=== PATIENT | male | born 1955 | race Caucasian/White ===

== ENCOUNTER 2023-12-22 09:14 | Inpatient (IN) | payer OTHER, SELFPAY ==
[2023-12-22 11:15] VITALS: BMI 28.2
--- NOTE | 2023-12-22 11:43 | W.CARD.TIKOS ---
Initiate Tikosyn
-
I verify that the patient has not taken any verapamil (Isoptin/Calan), ketoconazole (Nizoral), cimetidine (Tagamet), trimethoprim (Trimpex), trimethoprim/sulfamethoxazole (Bactrim), megesterol (Megace), prochlorperazine (Compazine),
hydrochlorothiazide (HCTZ), dolutegravir (Tivicay) or any Class I or Class III anti-arrhythmic within the last three days. Patient confirms verapamil stopped on Dec 18.
AND
I verify that the patient has not taken amiodarone within the last THREE months, or that the patient's amiodarone plasma concentration is <0.3 mcg/mL.
Does patient have a Ventricular Conduction Abnormality: No
I have assessed the baseline QTc interval (using QT for heart rate less than 60 bpm) and deemed the patient is appropriate for Dofetilide therapy. I understand that Tikosyn is contraindicated if the QTc is >440msec (500msec in patients with
ventricular conduction abnormalities).
Baseline QTc (in msec): 420
QTc interval is greater than 440msec without conduction abnormality OR greater than 500msec with a conduction abnormality, but acceptable to proceed per Cardiology attending.
Ordering Physician: Anish Sepulveda
[2023-12-22 13:02] VITALS: BP 122/60
[2023-12-22 13:15] VITALS: BMI 28.8
--- NOTE | 2023-12-22 13:40 | PTCARENOTE ---
Rec'd pt s/p PERICO/CV AAOx3 w/no CP or SOB. Pt's VS stable. Pt SR w/some PVC's on telemetry monitoring. Pt's spouse, Meet at bedside. This RN discussed plan of care w/pt & he verbalizes his understanding. Pt w/call robert within reach & no addtl
needs at this time. Plan of care ongoing.
[2023-12-22 14:28] LABS: Hematocrit 42.6 % (39.0-52.0); Hemoglobin 14.2 g/dL (13.0-18.0); Mean Corp Hgb Conc. 33.3 g/dL (33.0-37.0); Mean Corpuscular Hgb 28.7 pg (27.0-31.0); Mean Corpuscular Volume 86.1 fL (80.0-94.0); Platelet Count 198 10^3/uL (130-400); Red Blood Cell Count 4.95 10^6/uL (4.70-6.10); Red Cell Dist. Width 13.8 % (11.5-14.5); White Blood Cell Count 6.8 10^3/uL (4.8-10.8)
[2023-12-22 14:40] LABS: Blood Urea Nitrogen 22 mg/dl (9-20); Carbon Dioxide 24 mmol/L (22-30); Chloride 108 mmol/L (98-107); Estimated Creatinine Clearance 101 ml/min; Glucose 101 mg/dl (70-99); Potassium 3.9 mmol/L (3.5-5.1); Sodium 137 mmol/L (135-145); eGFR > 60.00
[2023-12-22 14:55] VITALS: BP 121/78
[2023-12-22 16:21] VITALS: BMI 28.8
[2023-12-22 18:52] VITALS: BP 107/80
[2023-12-22] MEDS: ELIQUIS 5 MG PO (20:17)
[2023-12-22] MEDS: TIKOSYN 500 MCG PO (20:17)
--- NOTE | 2023-12-22 21:16 | PTCARENOTE ---
Received pt at handoff. AOx3. Assessment noted as documented. Tele- SR. Pt given first dose of Tikosyn at 20:00. Ekg due for 22:00. Pt offers no complaints at this time. Pt ambulatory in room; steady gait. Currently resting in bed; call yesica w/in
reach.
[2023-12-22 22:10] VITALS: BP 109/68
--- NOTE | 2023-12-23 04:25 | DOWNTIME ---
There was a [employer] Client Audit Clerk Downtime on 12/23/2023 from 0111 to 12/23/2023 at 0405. Downtime documentation of patient's care, including medication administrations, has been reconciled in the electronic record per guidelines. Refer to the
patient's paper chart under the miscellaneous tab to see printed paper medication records and downtime forms.
[2023-12-23 04:35] VITALS: BP 120/76
[2023-12-23 04:47] VITALS: BMI 28.4
[2023-12-23 04:58] LABS: Hematocrit 40.6 % (39.0-52.0); Hemoglobin 13.7 g/dL (13.0-18.0); Mean Corp Hgb Conc. 33.7 g/dL (33.0-37.0); Mean Corpuscular Hgb 29.3 pg (27.0-31.0); Mean Corpuscular Volume 86.8 fL (80.0-94.0); Mean Platelet Volume 11.1 fL (7.4-10.4); Platelet Count 180 10^3/uL (130-400); Red Blood Cell Count 4.68 10^6/uL (4.70-6.10); Red Cell Dist. Width 13.6 % (11.5-14.5); White Blood Cell Count 7.9 10^3/uL (4.8-10.8)
[2023-12-23 05:24] LABS: Blood Urea Nitrogen 19 mg/dl (9-20); Calcium 9.2 mg/dl (8.4-10.2); Carbon Dioxide 24 mmol/L (22-30); Chloride 108 mmol/L (98-107); Estimated Creatinine Clearance 89 ml/min; Glucose 95 mg/dl (70-99); HDL Cholesterol 41 mg/dl; LDL Cholesterol, Calculated 81 mg/dl; Potassium 4.2 mmol/L (3.5-5.1); Sodium 138 mmol/L (135-145); Total Cholesterol 140 mg/dl (50-199); Triglyceride 91 mg/dl (10-149); Very Low Density Lipoprotein 18 mg/dl (0-30); eGFR > 60.00
[2023-12-23 07:38] VITALS: BP 126/73
[2023-12-23] MEDS: TIKOSYN 500 MCG PO ×2 (09:11→20:09)
[2023-12-23] MEDS: PROSCAR 5 MG PO (09:12)
[2023-12-23] MEDS: FLOMAX 0.400000000000000022 MG PO (09:12)
[2023-12-23] MEDS: LASIX 40 MG PO (09:12)
[2023-12-23] MEDS: DIOVAN 80 MG PO (09:12)
[2023-12-23] MEDS: ELIQUIS 5 MG PO ×2 (09:12→20:09)
[2023-12-23] MEDS: CLARITIN 10 MG PO (09:12)
--- NOTE | 2023-12-23 09:23 | CM ---
spoke to pt in room, he is prev indep, lives with her husb in a 1 story home with 2 steps to enter. he denies any dc planning needs or dme's. plan is for dc to home when medically stable.
--- NOTE | 2023-12-23 09:27 | W.PN.CD ---
Today's Communication / Plan
-
Add eplerenone, as had breast tenderness since Aldactone started
Continue Dofetilide. Home after 6th dose
Watch QT/Tele carefully
I spent 53 min caring for pt: Review extensive records, discussed with Dr. Sepulveda, prepared this document
Impression / Plan
-
Persistent AFib
- No complications for PERICO/DCCV on 12/22/[address] Sepulveda
- Doing well with dofetilide initiation
- Did well with ablation for about 17 years. He may pursue a second ablation
- [id number] is 3 (HF, HTN, age1)
- Home several hours after 6th dose of dofetilide
Chronic HFpEF
- Compensated
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
- PERICO 12/22/[address] Sepulveda. Technical issue with MV section transferring to [employer]
- Posterior P2 and P3 prolapse with moderate MR
Chronic anticoagulation
HTN
BPH
PVCs
PACs
Hematospermia
- He noted recently
- He knows to notify his urologist for followup but cannot stop/hold Eliquis for 30 days from DCCV
Breast tenderness since on Aldactone
- Move to eplerenone
Subjective: Feels well overall
Physical Exam
Vital Signs/Labs
Vital Signs
Temp Pulse Resp BP Pulse Ox
98.1 F 64 18 126/73 95
12/23/23 07:35 12/23/23 09:00 12/23/23 07:35 12/23/23 07:38 12/23/23 07:35
12/22/23 12/23/23 12/24/23
06:59 06:59 06:59
Actual Weight 89.9 kg
12/23/23 04:45
12/23/23 04:45
Triglycerides 91 mg/dl (10-149) 12/23/23 04:45
LDL Cholesterol, Calc 81 mg/dl 12/23/23 04:45
VLDL Cholesterol, Calc 18 mg/dl (0-30) 12/23/23 04:45
HDL Cholesterol 41 mg/dl 12/23/23 04:45
Physical Exam
Constitutional: No acute distress
EENT: Anicteric
Cardiovascular: Rhythm & rate is regular, Pedal edema is absent, JVD pressure is normal, Systolic murmur present and S1S2 is normal
Respiratory: Respiratory effort normal and Lungs clear to auscul.
GI: Soft and Distention absent
Neuro/Psych: AO x 3
Data Reviewed
-
Date of Service: December 23, 2023
EKG: Tracing Personally Visualized and interpreted (NSR, first degree AV block, QT ok)
Labs: Other (Tele: Sinus, PVCs but not on T wave. No VT)
[2023-12-23] MEDS: INSPRA 25 MG PO (11:12)
[2023-12-23 12:07] VITALS: BP 128/74
[2023-12-23 15:45] VITALS: BP 137/73
--- NOTE | 2023-12-23 19:45 | PTCARENOTE ---
Pt up independently. Second dose of tikosyn given. Telemetry shows sinus rhythm with first degree AV block, rare bigeminy noted.
[2023-12-23 20:07] VITALS: BP 114/74
[2023-12-23 22:21] VITALS: BP 114/80
[2023-12-24] VITALS (7 sets, daily range): BP systolic 103–128; BP diastolic 67–80; BMI 28.1
[2023-12-24] MEDS: TIKOSYN 500 MCG PO (08:24)
[2023-12-24] MEDS: FLOMAX 0.400000000000000022 MG PO (08:24)
[2023-12-24] MEDS: DIOVAN 80 MG PO (08:24)
[2023-12-24] MEDS: LASIX 40 MG PO (08:25)
[2023-12-24] MEDS: CLARITIN 10 MG PO (08:25)
[2023-12-24] MEDS: ELIQUIS 5 MG PO ×2 (08:25→20:05)
[2023-12-24] MEDS: PROSCAR 5 MG PO (08:25)
[2023-12-24] MEDS: INSPRA 25 MG PO (08:25)
--- NOTE | 2023-12-24 11:28 | W.PN.UPDATE ---
Update Note
Progress Note Update
patient was noted to have NSVT - 7 beat run. He has frequent PVCs. PVCs are acceptable for Tikosyn but with the onset of NSVT, it is concerning to continue Tikosyn. We discussed the options decided to stop the Tikosyn at this time. He will resume
his Verapamil in 3 days
He is in sinus rhythm. If he goes out of rhythm again, then can consider starting Amiodarone. He was on Amiodarone in the past and had failed due to ineffective. He can go back on it and if interested can see EP clinic for redo ablation. His first
AF ablation was in 2006 at [facility].
--- NOTE | 2023-12-24 11:32 | W.PN.UPDATE ---
Update Note
Progress Note Update
Patient is in normal sinus rhythm. Telemetry was reviewed. Patient has weak PVCs. However, he has nonsustained VT with 7 beats of ventricular tachycardia noted with the start of Tikosyn. With the new onset of nonsustained VT, Tikosyn may not be
an appropriate drug for him.
After discussion with the patient, we discontinued his Tikosyn. He will resume his verapamil in 3 days.
If he goes back into atrial fibrillation, plan will be to restart amiodarone. He was on amiodarone in the past and had failed it due to being ineffective.
Plan is restart amiodarone if A-fib comes back, and he can see EP clinic for need of repeat ablation. His first A-fib ablation was in 2002 at [facility]
--- NOTE | 2023-12-24 11:49 | CM ---
CM following for DC planning needs.
Reviewed DC plan. Anticipate DC to home without needs.
Will follow.
--- NOTE | 2023-12-24 18:30 | PTCARENOTE ---
Pt up walking in halls. Telemetry shows sinus rhythm with first degree AV block, 7 beat run of NSVT noted from midnight. Tikosyn discontinued after 4th dose was given this morning.
[2023-12-24] MEDS: INDERAL 10 MG PO (21:21)
--- NOTE | 2023-12-24 21:25 | PTCARENOTE ---
Patient with symptomatic PVC's and trigeminy. Propanol 10 mg PO given and confirmed with Dr. Sepulveda.
--- NOTE | 2023-12-24 22:08 | PTCARENOTE ---
NSR with a first degree HB and his frequent PVC's, couplets and trigeminy have subsided
[2023-12-25 05:10] VITALS: BP 124/73
--- NOTE | 2023-12-25 05:45 | PTCARENOTE ---
Patient comfortable, vitals obtained, SR HR in the 70's occasional PVC's, call robert in reach
[2023-12-25 07:19] VITALS: BP 118/76
[2023-12-25] MEDS: DIOVAN 80 MG PO (08:33)
[2023-12-25] MEDS: FLOMAX 0.400000000000000022 MG PO (08:33)
[2023-12-25] MEDS: PROSCAR 5 MG PO (08:33)
[2023-12-25] MEDS: CLARITIN 10 MG PO (08:33)
[2023-12-25] MEDS: LASIX 40 MG PO (08:34)
[2023-12-25] MEDS: INSPRA 25 MG PO (08:34)
[2023-12-25] MEDS: ELIQUIS 5 MG PO (08:34)
--- NOTE | 2023-12-25 10:39 | W.PN.CD ---
Today's Communication / Plan
-
Add propranolol
Home later this afternoon if tele quiet
Will meet with Dr. Pena as outpatient to discuss repeat AFib RFA
Will follow MVP/MR over time
Impression / Plan
-
Persistent AFib
- No complications for PERICO/DCCV on 12/22/[address] Sepulveda
- Dofetilide stopped fro NSVT
- Did well with ablation for about 17 years.
- He will pursue a second ablation
- [id number] is 3 (HF, HTN, age1)
- Home later this afternoon if tele quiet
- Add low dose long acting propranolol. Will not resume Verapamil
Chronic HFpEF
- Compensated
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
- PERICO 12/22/[address] Sepulveda. Technical issue with MV section transferring to [employer]
- Posterior P2 and P3 prolapse with moderate MR
Chronic anticoagulation
HTN
BPH
PVCs
PACs
Hematospermia
- He noted recently
- He knows to notify his urologist for followup but cannot stop/hold Eliquis for 30 days from DCCV
Breast tenderness since on Aldactone
- Move to eplerenone
Subjective: Feels well overall
Physical Exam
Vital Signs/Labs
Vital Signs
Temp Pulse Resp BP Pulse Ox
97.9 F 66 16 118/76 95
12/25/23 07:18 12/25/23 08:15 12/25/23 07:18 12/25/23 07:19 12/25/23 08:37
12/24/23 12/25/23 12/26/23
06:59 06:59 06:59
Actual Weight 88.8 kg
12/23/23 04:45
12/23/23 04:45
Triglycerides 91 mg/dl (10-149) 12/23/23 04:45
LDL Cholesterol, Calc 81 mg/dl 12/23/23 04:45
VLDL Cholesterol, Calc 18 mg/dl (0-30) 12/23/23 04:45
HDL Cholesterol 41 mg/dl 12/23/23 04:45
Physical Exam
Constitutional: No acute distress
EENT: Anicteric
Cardiovascular: Rhythm & rate is regular, Pedal edema is absent, Systolic murmur present and S1S2 is normal
Respiratory: Respiratory effort normal and Lungs clear to auscul.
GI: Soft
Neuro/Psych: Alert and Oriented
Data Reviewed
-
Date of Service: December 25, 2023
[2023-12-25] MEDS: INDERAL LA 60 MG PO (11:27)
[2023-12-25 11:48] VITALS: BP 123/79
[2023-12-25 15:36] VITALS: BP 104/62
--- NOTE | 2023-12-25 15:48 | W.DS.TRANS ---
Addendum entered and electronically signed by ZACH Mcdaniels 12/25/23 15:55:
Verapamil stopped at discharge.
Original Note:
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
-
Discharge Instructions:
Sleep Apnea Risk Intermediate
Discharge Diagnosis/Procedures persistent Afib, NSVT
Diet 2 Gram Sodium,Restrict fluids to 64 oz
Activity No restrictions
Driving Restrictions As prior to admission
Bathing Restrictions None
Instructions:
Stand-Alone Forms:
Changes to Home Medications: Yes
Discharge Medications:
DC Medications w/original date entered in byyd
cholecalciferol (vitamin D3) 50 mcg (2,000 unit) tablet (Vitamin D3) 50 mcg PO DAILY Supplement 10/30/23
coenzyme Q10 300 mg capsule (Co Q-10) 300 mg PO DAILY Supplement 10/30/23
finasteride 5 mg tablet 5 mg PO DAILY Urinary Issue 10/30/23
glucosamine sulf dipot chlr,msm,chond 550 mg-C 30 mg-tramaine 1 mg capsule (Glucosamine Chondroitin) 1 cap PO DAILY Supplement 10/30/23
loratadine 10 mg tablet 10 mg PO DAILY Allergies 10/30/23
lysine 500 mg tablet 1,000 mg PO DAILY Supplement 10/30/23
multivitamin 1 tab PO DAILY Supplement 10/30/23
tamsulosin 0.4 mg capsule 0.4 mg PO DAILY Urinary Issue 10/30/23
vitamin B complex 1 tab PO DAILY Supplement 10/30/23
apixaban 5 mg tablet (Eliquis) 5 mg PO BID #60 tabs 10/31/23
furosemide 40 mg tablet (Lasix) 40 mg PO DAILY #30 tabs 10/31/23
valsartan 160 mg tablet 80 mg PO DAILY Blood Pressure #0 tabs 10/31/23
ascorbic acid (vitamin C) 500 mg tablet (Vitamin C) 500 mg PO DAILY 12/22/23
qlyxjoc-yrejsyato-vqpt tablet 1 tab PO DAILY 12/22/23
cyanocobalamin (vitamin B-12) 1,000 mcg tablet (Vitamin B-12) 1,000 mcg PO DAILY 12/22/23
diosmin 750 mg PO DAILY 12/22/23
empagliflozin 10 mg tablet (Jardiance) 10 mg PO DAILY 12/22/23
turmeric 1,500 mg PO DAILY 12/22/23
eplerenone 25 mg tablet 25 mg PO DAILY #30 tabs 12/25/23
propranolol 60 mg capsule,24 hr,extended release 60 mg PO DAILY #30 caps 12/25/23
Home Medication Changes
Propranolol changed to 60mg extended release daily.
Eplerenone is new.
Aldactone stopped.
Pending Results: No
--- NOTE | 2023-12-25 17:09 | PTCARENOTE ---
Pt seen by , long acting propranolol given. Telemetry shows sinus rhythm with first degree AV block and quadrigeminy at times which pt is aware of. Telemetry and iV device removed. Discharge instructions reviewed with pt regarding
medications, reporting cares and concerns and follow up appt's. Excellent understanding verbalized. Pt escorted out via wheelchair and discharged to home.
== END 2023-12-25 17:11 | disposition home or self-care (01) | DRG 309 ==
LOC: IVU 09:14
PROVIDERS: Internal Medicine Cardiovascular Disease; ADMITTING PHYSICIAN Internal Medicine Cardiovascular Disease; FAMILY PHYSICIAN Family Medicine
PROC: 5A2204Z Restoration of Cardiac Rhythm, Single (ICD-10-PCS; 2023-12-22)
PROC: B24BZZ4 Ultrasonography of Heart with Aorta, Transesophageal (ICD-10-PCS; 2023-12-22)
PROC: 3E0DXRZ Introduction of Antiarrhythmic into Mouth and Pharynx, External Approach (ICD-10-PCS; 2023-12-24)
DX: I48.19 Other persistent atrial fibrillation (principal); I50.32 Chronic diastolic (congestive) heart failure; I47.20 Ventricular tachycardia, unspecified; I11.0 Hypertensive heart disease with heart failure; I34.0 Nonrheumatic mitral (valve) insufficiency; I49.1 Atrial premature depolarization; N40.0 Benign prostatic hyperplasia without lower urinary tract symptoms; I49.3 Ventricular premature depolarization; R36.1 Hematospermia; I34.1 Nonrheumatic mitral (valve) prolapse; Z79.01 Long term (current) use of anticoagulants
CPT/HCPCS: 80048; 80061; 85027; 92960; 93005; 93312; 93320; 93325

== ENCOUNTER 2024-01-07 07:58 | Day surgery (SDC) | payer OTHER, SELFPAY ==
[2024-01-07] VITALS (11 sets, daily range): BP systolic 108–128; BP diastolic 64–74; BMI 30.3
[2024-01-07] MEDS: TYLENOL 1000 MG PO (10:00)
[2024-01-07 13:08] LABS: ACT-LR - POC 326 Seconds (116-155)
[2024-01-07 13:27] LABS: ACT-LR - POC 335 Seconds (116-155)
[2024-01-07 13:44] LABS: ACT-LR - POC 334 Seconds (116-155)
--- NOTE | 2024-01-07 15:10 | ITS.CL.ABL ---
[employer] Sole [employer]itter - Ablation
Ablation
Procedure Report:
AFIB ablation:
Mr. Zazueta is a very pleasant 68 yr old gentleman with symptomatic persistent AF who had his first AF ablation in 2007 at [facility] that resulted in recurrence of AF and has failed Tikosyn due to NSVT and now on Propranolol presented today to the EP lab
for atrial fibrillation ablation. He was laso noted to have PVCs and if noted significant burden will consider getting PVC ablation as well. �
Date of Procedure:
01/07/2024
Indications:
Persistent recurrent atrial fibrillation
Pre-Operative Diagnosis:
Persistent Atrial fibrillation
Post-Operative Diagnosis:
Persistent Atrial fibrillation
Procedure Performed:
Atrial fibrillation Redo ablation with wide area circumferential ablation (WACA) approach for pulmonary vein re-isolation
Roof line formation
Posterior wall isolation
Performing Physician:
Bianca Pena MD
Assistants:
EP staff
Anesthesia:
See anesthesia records
Detailed Description of the Procedure:
Written informed consent was obtained from the patient after a full explanation of the risks and benefits of the procedure including the risks of sedation and anesthesia.
The patient was brought to the electrophysiology laboratory in stable condition in fasting state. Continuous electrocardiographic and hemodynamic monitoring was initiated.
The initial rhythm was sinus rhythm.
The procedure site was meticulously prepared with surgical scrub and allowed to dry with no pooling. Sterile draping was applied to cover the procedure site. The image intensifier was draped with sterile bag and positioned over the patient. After
infusion of local anesthetic, vascular access was obtained under ultrasound guidance and sheaths were placed over guide wire as detailed below.
Sheath and Catheter Placement:
The following catheters / sheaths were placed
Sheaths:
��������� Agilis sheath in right femoral vein upgraded from 8Fr in right femoral vein
��������� 7Fr in right femoral vein
��������� 9Fr in right femoral vein
Catheters:
��������� [employer] Colunga Thermocool STSF bidirectional� - at locations of HRA, RV, LA and LV.
��������� Pentaray catheter � at locations of RA, RV, LA and LV
��������� ICE catheter -AcuNav -� at locations of RA, SVC, and RV.
��������� Decapolar Bard catheter in RA and CS
Intracardiac ECHO:
An 8-Latvian AcuNav intracardiac ECHO (ICE) probe was advanced through the 9-Latvian sheath in the left femoral vein into the right atrium under fluoroscopic and ICE ultrasound image guidance and a baseline ECHO study was performed. The left atrial
size was dilated. There was mild tricuspid regurgitation. The aortic valve was grossly normal. There was mild left ventricular systolic dysfunction. There was no pericardial effusion. The GINI has normal velocities noted on Doppler. All the four
veins were identified and has good flow identified.
During the procedure, ICE was used for monitoring of complications, guidance of trans-septal puncture, monitor the catheter position and tracking ablation lesions. No change in the pericardial space noted throughout the procedure.
Transseptal Puncture:
Heparin was initiated and infused to maintain appropriate ACT. A J-tipped guidewire was advanced through the 8-Latvian sheath in the right femoral vein into the superior vena cava under fluoroscopic and ICE guidance. The 8-Latvian sheath was exchanged
for an Agilis sheath which was advanced into the superior vena cava. A BRK transseptal needle was advanced until the tip was slightly behind the tip of the dilator inside the sheath. The apparatus was withdrawn until it was in contact with the fossa
ovalis. The position was adjusted based on fluoroscopy and ultrasound images from ICE. Under fluoroscopic, hemodynamic and ICE ultrasound guidance, left atrium was cannulated by advancing the needle. Once atrial septum was cannulated, the needle was
pulled back and a BMW guide wire was advanced through the needle into the left atrium. The guide wire was advanced into the left superior pulmonary vein. Both the sheath and the dilator was advanced into the left atrium under fluoro and ICE
guidance. The dilator with the needle was withdrawn. Blood was aspirated from the Agilis sheath and arterial blood confirmed. The sheath was flushed. Saline injection noted into the left atrium on ICE. The mapping catheter was advanced in the Agilis
sheath into the left pulmonary vein.
3D Electroanatomic Mapping:
Using the Pentaray catheter advanced through Agilis sheath into the left atrium, an electroanatomic map (EAM) of the left atrium was created using [employer] Carto mapping system. The map was used for localization of catheter position and
tacking of ablation lesions. The EAM of the left atrium showed 4 pulmonary veins with the left sided pulmonary veins electrically connected with some posterior wall electrical activity. There were significant long fractionated signals noted at the
roof of the LA.
The LA was severely dilated. �
Following the EAM, preparation were made for ablation.
Ablation:
Ablation # 1: Pulmonary vein Isolation:
Radiofrequency ablation was performed using an open irrigation, force-sensing 3.5mm radiofrequency ablation catheter (Clusterize STSF) by completing the circumferential lesions around the left pulmonary vein achieving pulmonary vein isolation. There
was fractionated signal noted in the antrum of the LIPV and additional ablations were placed to create full isolation.
The ligament of Jonah was ablated endocardially.
All the ablation lesions were guided by the [employer] SURPOINT module with the posterior lesions were limited to 45 perez for SURPOINT lesion index goal of 400 and anterior wall lesions were limited to SURPOINT index goal of 450.
Ablation # 2: Roof line Formation:
There was a clear channel of electrical activity left in the posterior wall with multiple CFAE and AF areas on the roof significant scar noted on the roof with some residual electrical activity noted. This increased the risk of atrial flutter and
decision was made to create a roof line to block a slow conduction.
A set of radiofrequency ablations were placed on the roof line connecting the left superior pulmonary vein ablation lesions to the right superior pulmonary vein lesions rings.
Posterior wall isolation with the Box lesions set Formation:
There was a significant fractionation seen in the posterior wall and LA AF foci made it clear as the posterior wall is critical in maintaining the atrial fibrillation and the decision was made to isolate the posterior wall by creating a �Box�
lesions.
A set of radiofrequency ablations were placed on the floor line connecting the left inferior pulmonary vein ablation lesions to the right inferior pulmonary vein lesions rings.
Epicardial posterior wall connection ablation:
The EAM of the LA showed epicardial connection at the center of the left atrial posterior wall. The area was mapped and was paced that was able to capture the LA through that point. The epicardial connection had no signals around it and no capture
or was noted on the roof or the floor line.
The epicardial connection was ablated with ablation lesion with a single ablation the connection dissipated. The area was connected to the roof line and to the floor line.
The posterior wall area adjacent to the RIPV antrum was noted to have GPs and ablation there caused bradycardia.
The penta-ray in the posterior wall showed entrance block with dissociated potentials and the pacing from the posterior wall showed local capture with no exit from the box lesions confirming the exit block.
The esophagus was noted to be on the left of the LA based on the locations of the esophageal temperature probe. Ablation was stopped for any temperature increase of 0.1 degree C. Max esophageal temperature was 37.6C.
Confirmation of the PVI and bidirectional block:
Following achievement of entrance block at the pulmonary veins, pacing from the pentaray in each of the four veins at 10 milliamps for 2 milliseconds showed entrance and exit block.
EP study:
Normal AV conduction noted.
The sinus node has recovered and patient remained in sinus rhythm
All PVI were rechecked at the end of the case and remained isolated with dissociated and local capture with pacing. Entrance and exit block were demonstrated in all veins.
Procedure End
ICE study was done again that showed no epicardial accumulation. No complications noted.
Following the completion of the EP study, catheters were removed. Protamine 40 mg was given at the end of the procedure and ACT was checked repeatedly. The sheaths were removed and hemostasis achieved with manual compression and Vascade after
acceptable ACT is achieved.
Left atrial Pressure:
Pre-Procedure: Mean LA pressure was 9mmHg
Post-Procedure: Mean LA pressure was 10mmHg
Post-Procedure: Mean RA pressure was 6mmHg
Estimated Blood loss:
<10 cc
Specimens Removed:
None.
Implants / Devices:
None
Urine output:
None
Packs / Drains/ Tubes:
None
Instrument / Sponge Count Correct:
Yes
Complications of the Procedure:
None
Condition of Patient at Time of Transfer:
Hemodynamically stable with no neurological or vascular compromise.
Summary:
Successful atrial fibrillation ablation with circumferential bidirectional line of block at pulmonary venin antra (Pulmonary vein isolation), Epicardial connection ablation on posterior wall, Roof line formation, posterior wall isolation
Figures from the Procedure:
Figure 1: The electroanatomic mapping (EAM) of the left atrium with bipolar voltage (purple indicates normal electrical activity with red as no myocardial muscle electric activity indicating a line of block or scar.
--- NOTE | 2024-01-07 16:22 | W.PN.UPDATE ---
Update Note
Progress Note Update
68 yo WM s/p redo PVI (same day). He feels good, no cp, sob, darío diet, voiding, amb w/o dizziness, R fem site c/d/i soft, EKG SR/SB 1deg AVB. He will continue OAC Eliquis dose at 8pm tonight. He will continue propanolol. Activity restrictions
reviewed. 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 He is for d/c home after 5pm.
Mr. Zazueta is a very pleasant 68 yr old gentleman with symptomatic persistent AF who had his first AF ablation in 2007 at [facility] that resulted in recurrence of AF and has failed Tikosyn due to NSVT and now on Propranolol presented today to the EP lab
for atrial fibrillation ablation. He was laso noted to have PVCs and if noted significant burden will consider getting PVC ablation as well. �
Date of Procedure:
01/07/2024
Procedure Performed:
Atrial fibrillation Redo ablation with wide area circumferential ablation (WACA) approach for pulmonary vein re-isolation
Roof line formation
Posterior wall isolation
[2024-01-07] MEDS: TYLENOL 650 MG PO (16:49)
== END 2024-01-07 17:07 | disposition home or self-care (01) ==
LOC: CATH 07:58
PROVIDERS: ATTENDING PHYSICIAN Internal Medicine Cardiovascular Disease; FAMILY PHYSICIAN Family Medicine; OTHER PHYSICIAN Internal Medicine Cardiovascular Disease
DX: I48.19 Other persistent atrial fibrillation (principal); Z79.01 Long term (current) use of anticoagulants; I11.0 Hypertensive heart disease with heart failure; I50.32 Chronic diastolic (congestive) heart failure; I49.3 Ventricular premature depolarization
CPT/HCPCS: C1769; C1732; C1894; C1766; C1892; C1759; 76937; 85347; 86850; 86900; 86901; 93005; 93656; 93657; C1760

== ENCOUNTER → 2024-02-11 11:39 | Outpatient (REF) | payer OTHER, SELFPAY | LOC: RCS 11:39 | PROVIDERS: ATTENDING PHYSICIAN Internal Medicine Cardiovascular Disease; FAMILY PHYSICIAN Family Medicine | DX: I48.0 Paroxysmal atrial fibrillation (principal) | CPT/HCPCS: 93005 ==

== ENCOUNTER 2024-02-17 07:10 | Day surgery (SDC) | payer OTHER, SELFPAY | END 2024-02-17 10:10 | disposition home or self-care (01) | LOC: CATH 07:10 | PROVIDERS: ATTENDING PHYSICIAN Internal Medicine; FAMILY PHYSICIAN Family Medicine; OTHER PHYSICIAN Internal Medicine Cardiovascular Disease | DX: I08.3 Combined rheumatic disorders of mitral, aortic and tricuspid valves (principal); I08.8 Other rheumatic multiple valve diseases; I48.19 Other persistent atrial fibrillation; I50.32 Chronic diastolic (congestive) heart failure; I34.1 Nonrheumatic mitral (valve) prolapse; I11.0 Hypertensive heart disease with heart failure; Z79.01 Long term (current) use of anticoagulants | CPT/HCPCS: 93312; 93320; 93325; 92960; 93005 ==

== ENCOUNTER → 2024-03-09 12:01 | Outpatient (REF) | payer OTHER, SELFPAY | LOC: DHCBC/DCA 12:01 | PROVIDERS: ATTENDING PHYSICIAN Nurse Practitioner; FAMILY PHYSICIAN Family Medicine | DX: I48.0 Paroxysmal atrial fibrillation (principal); I47.29 Other ventricular tachycardia; I49.3 Ventricular premature depolarization; R53.83 Other fatigue; R06.09 Other forms of dyspnea | CPT/HCPCS: 78452; 93017; A9500; J2785 ==

== ENCOUNTER → 2025-03-09 07:20 | Outpatient (REF) | payer OTHER, SELFPAY | LOC: HWRAD 07:20 | PROVIDERS: ATTENDING PHYSICIAN Physician Assistant; FAMILY PHYSICIAN Family Medicine | DX: R19.09 Other intra-abdominal and pelvic swelling, mass and lump (principal) | CPT/HCPCS: 76882 ==

== ENCOUNTER → 2025-04-20 14:10 | Outpatient (REF) | payer OTHER, SELFPAY | LOC: RCS 14:10 | PROVIDERS: ATTENDING PHYSICIAN Internal Medicine Cardiovascular Disease; FAMILY PHYSICIAN Family Medicine | DX: I34.1 Nonrheumatic mitral (valve) prolapse (principal); I34.0 Nonrheumatic mitral (valve) insufficiency | CPT/HCPCS: 93306 ==

== ENCOUNTER 2025-06-08 06:14 | Day surgery (SDC) | payer OTHER, SELFPAY ==
[2025-06-08 06:35] VITALS: BP 143/79
--- NOTE | 2025-06-08 07:00 | W.SUR.PREOP ---
Pre-Operative Surgical Note
-
I have examined this patient prior to the performance of the scheduled procedure.
The patient's condition is unchanged from the time of the current History and
Physical and the patient is able to undergo the scheduled procedure.
--- NOTE | 2025-06-08 07:00 | HP.FOC2 ---
Focused History & Physical
Chief Complaint
HPI:
Chief Complaint: Right inguinal hernia
HPI / Indication for Planned Procedure: This is a 69-year-old male who presents with a symptomatic right inguinal hernia. Open right inguinal hernia repair with mesh
Relevant Past Medical History: Other (Atrial fibrillation on Eliquis)
Relevant Social History: Negative
Relevant Family History: Negative
Relevant Past Surgical History: Negative
Review of Systems
Review of Pertinent Systems: All Systems Negative
Medication
See Medication form for detailed medications: Yes
Medication List (including Herbals & OTC):
cholecalciferol (vitamin D3) 50 mcg (2,000 unit) tablet (Vitamin D3) 50 mcg PO DAILY Supplement 10/30/23
coenzyme Q10 300 mg capsule (Co Q-10) 300 mg PO DAILY Supplement 10/30/23
finasteride 5 mg tablet 5 mg PO DAILY Urinary Issue 10/30/23
glucosamine sulf dipot chlr,msm,chond 550 mg-C 30 mg-tramaine 1 mg capsule (Glucosamine Chondroitin) 1 cap PO DAILY Supplement 10/30/23
loratadine 10 mg tablet 10 mg PO DAILY Allergies 10/30/23
multivitamin 1 tab PO DAILY Supplement 10/30/23
tamsulosin 0.4 mg capsule 0.4 mg PO DAILY Urinary Issue 10/30/23
vitamin B complex 1 tab PO DAILY Supplement 10/30/23
apixaban 5 mg tablet (Eliquis) 5 mg PO BID #60 tabs 10/31/23
furosemide 40 mg tablet (Lasix) 40 mg PO DAILY #30 tabs 10/31/23
ascorbic acid (vitamin C) 500 mg tablet (Vitamin C) 250 mg PO BID 12/22/23
cyanocobalamin (vitamin B-12) 1,000 mcg tablet (Vitamin B-12) 1,000 mcg PO DAILY 12/22/23
empagliflozin 10 mg tablet (Jardiance) 10 mg PO DAILY 12/22/23
eplerenone 25 mg tablet 25 mg PO DAILY #30 tabs 12/25/23
acetaminophen 500 mg tablet 1,000 mg PO BID 06/05/25
calcium carbonate 500 mg PO BID 06/05/25
magnesium 200 mg tablet 400 mg PO DAILY 06/05/25
metoprolol succinate 25 mg tablet,extended release 24 hr 25 mg PO BID 06/05/25
psyllium 1 packet PO DAILY 06/05/25
valsartan 40 mg tablet 40 mg PO DAILY 06/05/25
Medications Reviewed: Yes
Allergies and Reactions
Patient has Allergies: Yes
Noted Allergies and Reactions:
Allergy/AdvReac Type Severity Reaction Status Date / Time
pollen extracts Allergy seasonal Verified 06/08/25 06:48
allergies
lisinopril AdvReac cough Verified 06/08/25 06:48
Pertinent Physical Exam
All Other Systems: Negative
Head/Neck: Normal
Diagnosis / Assessment
This is a 69-year-old male who presents with a symptomatic right inguinal hernia.
Plan / Procedure
Open right inguinal hernia repair with mesh
[2025-06-08] MEDS: NORMOSOL-R/PLASMALYTE-A 1000 IV (07:10)
[2025-06-08 08:36] VITALS: BP 116/50
[2025-06-08 08:45] VITALS: BP 117/65
--- NOTE | 2025-06-08 08:58 | W.IMMPOSTOP ---
Surgical Immed Post Op Note
-
Primary Surgeon: Carl Torres MD
Assisting Surgeon: None
Pre-op Diagnosis: Right inguinal hernia
Post-op Diagnosis: Same
Procedure Performed:
1. Open right inguinal hernia repair with mesh
2. Right inguinal pragmatic neurectomy
Anesthesia Type: General
Specimen / Cultures: Right inguinal nerve
Estimated Blood Loss: 7 cc
Complications: None
Operative Findings: Medium sized indirect inguinal hernia containing abdominal fat which was reduced. High ligation performed. No direct or femoral component palpated. No cord lipoma. The floor was reinforced with a 10 x 15 cm Bard soft uncoated
polypropylene mid weight mesh in the standard Sidra fashion. 3 g of Isaias used as a hemostatic agent at the various levels of the dissection.
[2025-06-08 09:00] VITALS: BP 110/62
--- NOTE | 2025-06-08 09:00 | OR.RPT ---
Operative Report
Operative Report
Patient Name: Jevon Zazueta
: 1955
Date of Operation: 06/08/2025
Preoperative Diagnosis: Right inguinal hernia
Postoperative Diagnosis: Right inguinal hernia
Procedure(s):
1. Open right inguinal hernia repair with mesh (64680)
2. Pragmatic right inguinal neurectomy x 2 (77029)
Surgeon(s):
Dr. Torres
Hand Riveter(s):
OLIVIER Botello
Anesthesia: MAC
Estimated Blood Loss: [7] cc
Urine Output: None
Drains/Lines/Implants: 15x7.5cm Bard Soft uncoated polypropylene Mesh cut to size
Specimen / Cultures:
Inguinal nerve
Indication for surgery: The patient has a history of groin pain and some asymmetry noted on exam and was found to have a right inguinal Hernia. Following review of therapeutic options they elected to undergo an open repair
Operative Findings: Medium sized indirect inguinal hernia containing abdominal fat which was reduced. High ligation performed. No direct or femoral component palpated. No cord lipoma. The floor was reinforced with a 10 x 15 cm Bard soft uncoated
polypropylene mid weight mesh in the standard Sidra fashion. 3 g of Isaias used as a hemostatic agent at the various levels of the dissection.
Details of the operation:
After induction of general anesthesia, the patient was clipped, prepped and draped in the supine position. A team timeout was performed confirming administration of DVT prophylaxis, IV antibiotics and SCDs. The ASIS and pubic tubercle were marked
and an incision was chosen along the course of a skin line. The skin was anesthetized with Lidocaine. An incision was made through the skin line and dissection carried down through subcutaneous tissue and Mo's fascia. The superficial epigastric
vein was identified and ligated. A Small Judson wound retractor was used to provide exposure. The external oblique fibers were then divided in the direction of travel. The ilioinguinal nerve was identified and sacrificed. Dissection was carried down
to the floor, which revealed the following:
At the site of the indirect (internal) ring, there was a moderate size protrusion of preperitoneal fat, the hernia sac was identified, dissected and reduced off the cord structures.
No cord lipoma was identified.
The direct space, floor of the canal revealed no weakness. And no femoral component was palpated through the indirect sac.
The floor of the canal was then reconstructed by placing a 15 x 7.5 cm Bard soft uncoated polypropylene mesh trimmed to size and secured it in place with interrupted 0-PDS sutures medially at the pubic tubercle, inferiorly along the inguinal
ligament, laterally/superiorly in the conjoint tendon. A slit was made in the mesh just wide enough to accommodate the cord this was also reapproximated with the PDS suture. Care was taken not to injure or entrap any nerves. Due to the patient's
use of Eliquis there was some minor diffuse oozing which stopped with application of Isaias which was used in all layers of the closure. The external oblique fibers were then closed using a running 2-0 Vicryl suture. Mo's fascia was then
closed with interrupted 3-0 Vicryl suture. The skin was closed in layers with interrupted 3-0 vicryl deep dermals followed by a running subcuticular 4-0 Monocryl followed by dermabond. The patient returned to the Recovery Room in stable condition.
Sponge and instrument counts were correct.
I was the attending physician and performed the procedure with assistance of the PA above. The assistance of OLIVIER Botello was required due to the complexity of the procedure. [During the procedure Lelo assisted with retraction, resection, and
closure of the wound.] I was present for all portions of the case[, excluding skin closure].
Carl Torres MD
[2025-06-08 09:15] VITALS: BP 120/67
== END 2025-06-08 09:50 | disposition home or self-care (01) ==
LOC: SDS 06:14
PROVIDERS: ATTENDING PHYSICIAN Surgery
DX: K40.90 Unilateral inguinal hernia, without obstruction or gangrene, not specified as recurrent (principal)
CPT/HCPCS: 49505; 88304

== ENCOUNTER → 2025-08-01 11:00 | Outpatient (REF) | payer OTHER, SELFPAY | LOC: HWRCS 11:00 | PROVIDERS: ATTENDING PHYSICIAN Nurse Practitioner Gerontology; FAMILY PHYSICIAN Family Medicine | DX: R06.02 Shortness of breath (principal); I34.1 Nonrheumatic mitral (valve) prolapse | CPT/HCPCS: 93308 ==

== ENCOUNTER 2025-08-11 07:12 | Day surgery (SDC) | payer OTHER, SELFPAY ==
[2025-08-11] VITALS (12 sets, daily range): BP systolic 113–129; BP diastolic 59–79
[2025-08-11 09:56] LABS: Hematocrit 43.5 % (39.0-52.0); Hemoglobin 14.1 g/dL (13.0-18.0); Mean Corp Hgb Conc. 32.4 g/dL (33.0-37.0); Mean Corpuscular Volume 89.9 fL (80.0-94.0); Platelet Count 180 10^3/uL (130-400); Red Cell Dist. Width 13.0 % (11.5-14.5)
[2025-08-11] MEDS: NSS 1000 IV (12:15)
--- NOTE | 2025-08-11 16:22 | ITS.CL.PN ---
[facility] - Procedure Note
Procedure
Procedure Note:
CARDIAC CATHETERIZATION REPORT
Date of Procedure: 08/11/2025
Referring: Dr. Omid Dos Santos MD
Indication: Severe mitral regurgitation, preoperative evaluation
PROCEDURE(S)
1. right heart catheterization
2. left heart catheterization
3. coronary angiography
ACCESS
1. 6F right radial artery (closure: radial band)
2. 5F right antecubital vein (closure: manual hemostasis)
CATHETERS
1. 5F [place]
2. 6F JR4
3. 6F JL3.5
MODERATE SEDATION: 25 minutes of moderate sedation was utilized. An independent medical insurance coder was present to assist with and help manage the patient's level of consciousness and physiologic status.
HEMODYNAMIC DATA
LV 100/11 (EDP 16) mmHg
AO 113/59 (mean 80) mmHg
RA 12 mmHg
RV 52/6 (EDP 14) mmHg
PA 53/15 (mean 31) mmHg
PCWP 21 mmHg
SaO2 94.1%
SvO2 69.9%
Hb 14.6 g/dL
CO/CI 5.55/2.60 L/min/m2
SVR 980 dsc*-5
PVR 144 Wood units
CORONARY ANGIOGRAPHY
Dominance: Right
LM: Large, normal
LAD: Large vessel giving rise to a large D1, small D2, and wrapping around the apex. There are trivial luminal irregularities only.
LCx: Moderate caliber vessel giving rise to a moderate caliber OM1. There are trivial luminal irregularities only.
RCA: Large vessel giving rise to moderate caliber RPDA, moderate caliber RPL1, and small RPL2. There are trivial luminal irregularities only.
RADIATION: dose 357 mGy; DAP 22.8 Gy*cm2; fluoroscopy time 6.7 min
CONCLUSIONS
1. Trivial luminal irregularities only and right dominant system.
2. Mildly elevated biventricular filling pressures, moderate predominantly postcapillary pulmonary hypertension, and normal cardiac output.
3. No aortic stenosis on hemodynamic pullback.
RECOMMENDATIONS
1. Proceed with workup for mitral valve repair/replacement.
Copy to: Dr. Joseph Dos Santos MD (court bailiff or sheriff); Dr. Jeremy Kramer MD (PCP)
Signed: Manny Claros MD, PhD
== END 2025-08-11 15:20 | disposition home or self-care (01) ==
LOC: CATH 07:12
PROVIDERS: Student in an Organized Health Care Education/Training Program; ATTENDING PHYSICIAN Student in an Organized Health Care Education/Training Program; FAMILY PHYSICIAN Family Medicine; OTHER PHYSICIAN Internal Medicine Cardiovascular Disease
DX: I08.0 Rheumatic disorders of both mitral and aortic valves (principal); I27.20 Pulmonary hypertension, unspecified; I08.8 Other rheumatic multiple valve diseases
CPT/HCPCS: 93312; 93320; 93325; 85027; 93460; 99152; 99153; C1769; C1894; Q9967

== ENCOUNTER → 2025-08-30 07:21 | Outpatient (REF) | payer OTHER, SELFPAY | LOC: RAD 07:21 | PROVIDERS: ATTENDING PHYSICIAN Thoracic Surgery (Cardiothoracic Vascular Surgery); FAMILY PHYSICIAN Family Medicine | DX: I34.0 Nonrheumatic mitral (valve) insufficiency (principal) | CPT/HCPCS: 71275; 74174; Q9967 ==

== ENCOUNTER 2025-09-07 05:08 | Inpatient (IN) | payer OTHER, SELFPAY ==
[2025-08-28 12:16] VITALS: BMI 31.6
[2025-08-28 13:18] LABS: Hematocrit 46.6 % (39.0-52.0); Hemoglobin 15.1 g/dL (13.0-18.0); Mean Corp Hgb Conc. 32.4 g/dL (33.0-37.0); Mean Corpuscular Volume 90.8 fL (80.0-94.0); Nucleated Red Blood Cells % 0 % (-); Platelet Count 205 10^3/uL (130-400); Red Cell Dist. Width 13.2 % (11.5-14.5)
[2025-08-28 13:21] LABS: INR 1.11; PT 14.6 Sec (11.4-14.6)
[2025-08-28 13:29] LABS: ALT (SGPT) 63 U/L (0-50); AST (SGOT) 41 U/L (17-59); Albumin 4.9 g/dl (3.5-5.0); Alkaline Phosphatase 66 U/L (38-126); Blood Urea Nitrogen 28 mg/dl (9-20); Calcium 9.5 mg/dl (8.4-10.2); Carbon Dioxide 26 mmol/L (22-30); Chloride 104 mmol/L (98-107); Estimated Creatinine Clearance 86 ml/min; Glucose 90 mg/dl (70-99); Potassium 4.5 mmol/L (3.5-5.1); Sodium 138 mmol/L (135-145); Total Protein 7.6 g/dl (6.3-8.2); eGFR > 60.00
[2025-08-28 13:32] LABS: Urine Character Clear (Clear)
--- NOTE | 2025-08-28 13:39 | CM ---
Spoke to patient in [facility], discussed preop mitral valve surgery including sternal and driving precautions. He is previously independent, lives with in a one story home with 2 steps to enter. He has a single point cane, uses as needed, and a
walker at home, as well as a lift recliner. He has the cardiac surgery book, soap, and instructions. He is agreeable to a followup visit from [place] transitional care nurses. Case management role explained, all questions answered. Plan is for MVr
09/07/25.
[2025-08-28 14:03] LABS: Glycohemoglobin (HgbA1c) 5.6 % (4.0-5.9)
[2025-08-28 14:15] LABS: Urine Red Blood Cell 0-2 /HPF (0-2); Urine Squamous Cell None seen /LPF (Few); Urine White Cell 0-2 /HPF (0-5)
[2025-09-07] VITALS (15 sets, daily range): BP systolic 94–154; BP diastolic 54–104; BMI 30.5
[2025-09-07] MEDS: PROTONIX 40 MG PO (05:34)
[2025-09-07] MEDS: BACTROBAN 2% OINTMENT 1 APPLIC NASAL ×2 (05:34→20:10)
[2025-09-07] MEDS: MAGNESIUM OXIDE 400 MG PO (05:34)
--- NOTE | 2025-09-07 05:57 | PTCARENOTE ---
pt admitted into CVICU room 8934. pt confirmed 2 showers at home. pt clipped and prepped for CVOR. med rec completed. pre-op education provided. pre-op meds given. reconstructive dentist to CVOR.
[2025-09-07] MEDS: LOPRESSOR 12.5 MG PO (06:24)
--- NOTE | 2025-09-07 06:32 | W.CVOR.SURPR ---
CVOR Surgeon Immed Pre Op
-
I have examined this patient prior to performance of the scheduled procedure.
The patient's condition is unchanged from the time of the dictated/written History and
Physical and the patient is able to undergo the scheduled procedure.
MV Repair + MAZE + LAAE
[2025-09-07 07:42] LABS: ACT+ - POC 129 Seconds (82-134)
[2025-09-07 08:14] LABS: Urine Character Clear (Clear)
--- NOTE | 2025-09-07 08:28 | CM ---
Reviewed chart. Mr. Zazueta is in the operating room today. Prior to admission he resides with his spouse in a one story home with one step to enter. Prior to admission he was independent with ambulation and adls. He has a walker, single point
cane and lift chair at home He has a prescription plan.Medical work-up in progress. The discharge plan is to return home with his spouse and a home visit by the Transitional Care Nurse when medically stable.
[2025-09-07 08:39] LABS: ACT+ - POC 565 Seconds (82-134)
[2025-09-07 08:51] LABS: B.E. - POC -2.8 mmol/L; Glucose - POC 102 mg/dl (70-99); HCO3 - POC 23 mmol/L (21-28); Hematocrit - POC 37 % PCV (42-52); Hemodilution- POC No; Hemoglobin Calculated - POC 12.4; Ionized Calcium - POC 1.19 mmol/L (1.15-1.33); Lactate - POC 0.77 mmol/L (0.36-0.75); O2 Saturation %Calculated-POC 94.6 % (94-98); PCO2 - POC 43 mmHg (35-48); PO2 - POC 79 mmHg (83-108); Potassium - POC 3.9 mmol/L (3.5-5.1); Sodium - POC 140 mmol/L (136-145); Specimen Type - POC Arterial; pH - POC 7.34 (7.35-7.45)
[2025-09-07 09:00] LABS: ACT+ - POC 471 Seconds (82-134)
[2025-09-07 09:36] LABS: B.E. - POC -1.6 mmol/L; Glucose - POC 132 mg/dl (70-99); HCO3 - POC 23 mmol/L (21-28); Hematocrit - POC 34 % PCV (42-52); Hemodilution- POC Yes; Hemoglobin Calculated - POC 11.5; Ionized Calcium - POC 1.14 mmol/L (1.15-1.33); Lactate - POC 0.78 mmol/L (0.36-0.75); O2 Saturation %Calculated-POC 99.9 % (94-98); PCO2 - POC 40 mmHg (35-48); PO2 - POC 325 mmHg (83-108); Potassium - POC 4.0 mmol/L (3.5-5.1); Sodium - POC 140 mmol/L (136-145); Specimen Type - POC Arterial; pH - POC 7.38 (7.35-7.45)
[2025-09-07 09:53] LABS: ACT+ - POC 596 Seconds (82-134)
[2025-09-07 10:11] LABS: B.E. - POC -1.9 mmol/L; Glucose - POC 178 mg/dl (70-99); HCO3 - POC 24 mmol/L (21-28); Hematocrit - POC 36 % PCV (42-52); Hemodilution- POC Yes; Hemoglobin Calculated - POC 12.3; Ionized Calcium - POC 1.13 mmol/L (1.15-1.33); Lactate - POC 0.62 mmol/L (0.36-0.75); O2 Saturation %Calculated-POC 99.9 % (94-98); PCO2 - POC 46 mmHg (35-48); PO2 - POC 288 mmHg (83-108); Potassium - POC 4.5 mmol/L (3.5-5.1); Sodium - POC 140 mmol/L (136-145); Specimen Type - POC Arterial; pH - POC 7.33 (7.35-7.45)
[2025-09-07 10:25] LABS: ACT+ - POC 517 Seconds (82-134)
[2025-09-07 11:26] LABS: B.E. - POC -2.6 mmol/L; Glucose - POC 169 mg/dl (70-99); HCO3 - POC 23 mmol/L (21-28); Hematocrit - POC 35 % PCV (42-52); Hemodilution- POC Yes; Hemoglobin Calculated - POC 11.9; Ionized Calcium - POC 1.13 mmol/L (1.15-1.33); Lactate - POC 1.04 mmol/L (0.36-0.75); O2 Saturation %Calculated-POC 99.9 % (94-98); PCO2 - POC 41 mmHg (35-48); PO2 - POC 272 mmHg (83-108); Potassium - POC 3.5 mmol/L (3.5-5.1); Sodium - POC 142 mmol/L (136-145); Specimen Type - POC Arterial; pH - POC 7.35 (7.35-7.45)
[2025-09-07 11:50] LABS: ACT+ - POC 123 Seconds (82-134)
[2025-09-07] MEDS: NEURONTIN PO ×2 (11:59→15:13)
[2025-09-07 12:03] LABS: B.E. - POC -4.4 mmol/L; Glucose - POC 50 mg/dl (70-99); HCO3 - POC 22 mmol/L (21-28); Hematocrit - POC 35 % PCV (42-52); Hemodilution- POC Yes; Hemoglobin Calculated - POC 12.0; Ionized Calcium - POC 1.20 mmol/L (1.15-1.33); Lactate - POC 2.75 mmol/L (0.36-0.75); O2 Saturation %Calculated-POC 99.1 % (94-98); PCO2 - POC 48 mmHg (35-48); PO2 - POC 154 mmHg (83-108); Potassium - POC 3.6 mmol/L (3.5-5.1); Sodium - POC 143 mmol/L (136-145); Specimen Type - POC Arterial; pH - POC 7.28 (7.35-7.45)
[2025-09-07 12:06] LABS: Urine Red Blood Cell 0-2 /HPF (0-2)
--- NOTE | 2025-09-07 12:22 | W.PN.CT.SURG ---
CT Surgery Operative Note
-
CARDIAC SURGERY OPERATIVE REPORT
Preoperative Diagnosis: Degenerative Mitral Valve Disease with Severe Regurgitation and Acute on Chronic Heart Failure
Postoperative Diagnosis: Same
Procedure(s) Performed:
1. Right mini thoracotomy with right femoral artery and vein cannulation under PERICO guidance
2. Radical mitral valve Repair (Imbrication of P2 onto P3, cleft closure, neochordoplasty x 3 to posterior leaflet, Annuloplasty with 38mm Band)
3. Placement temporary ventricular pacing wires
4. Trans esophageal echocardiography
5. Cryoablation, left atrial maze and left atrial appendage exclusion with a 35 mm clip
6. Iatrogenic atrial septal defect closure from previous ablations, done primarily
Date of Surgery: 09/07/25
Comorbidities:
1. Degenerative mitral valve disease, severe regurgitation secondary to prolapse and flail of P2 and P3 [type II pathology]
2. Acute on chronic congestive heart failure with severely depressed cardiac index at 1.3
3. Chronic atrial fibrillation on anticoagulation
4. BPH
5. Hypogonadism
6. Osteopenia
7. PVCs
8. Hypertension
Attending Surgeon: Dane Spencer MD, MS
Assistants: Rivera Henderson PA-C (present and necessary for retraction, suctioning, exposure, suture management, wound closure, etc. under my direction)
Anesthesiology: Ignacio Singleton MD and Kathleen Flanagan CRNA
Scrub and Circulating RNs: Ana Branch RN, Anuel Gonsales RN and Cydney Fernandez RN
Canvas Marker: Shi Bennett CCP
Anesthesia: GETA
EBL: per perfusion records
Products: None
CPB Time: 139 minutes
Aortic Cross Clamp Time: 97 minutes
Indication(s) for Procedures: This is a 69-year-old male who is referred for mitral valve deficiency and A-fib. He has become quite symptomatic over time he was developing severe shortness of breath with slight exertion as well as increasing
fatigue at rest. He was also admitted for heart failure with volume overload and required Lasix outpatient. His valve did have some calcification but overall the pathology was secondary to myxomatous degeneration with prolapsing and flail of the
posterior leaflet of the mitral valve and annular dilatation. Given his A-fib history, he was offered surgical repair of the mitral valve as well as ablation and management of his left atrial appendage.
Mitral Valve Description: Thickening of both the anterior and posterior leaflets with a small segment of calcification on the ventricular aspect of the anterior foot at the midportion, the posterior leaflet was also thickened with a flail segment at
the P2 scallop as well as prolapsing of both P2 and P3 scallops. There is also a large cleft between P2 and P3. The annulus asymmetrically dilated towards the P2 P3 region.
Implants:
1. 38 mm Sorensen physio flex annuloplasty band, serial #[id number]
2. Chord X Goretex Chordal System, x [address]
3. Multiple 5-0 Prolene sutures
4. 35 mm left atrial appendage clip, serial number [id number]
MAZE Lesion Sets:
1. Box lesion to posterior LA wall
2. GINI lesion + GINI Exclusion
3. Coronary sinus lesion
4. Posterior mitral annular line toward P2/P3
Specimen:
1. none
Findings: His left ventricular ejection fraction preoperatively is 60% with a dilated left ventricle. His cardiac index preoperatively under anesthesia with the [place] in place was 1.3 without inotropic support. Following surgery his EF did remain
the same at 60% and his cardiac index was significantly improved to 2.6 on 5 of Dobutrex. His mitral valve was repaired by imbricating the P2 scallop onto P3 effectively closed in that cleft and then placing 3 sets of cords to the anterolateral
papillary muscle head anchoring P1-P2 P2-P3 and P3 itself. I then sized the valve to a 38 mm angioplasty band securing it from trigone to trigone using a total of 11 nonpledgeted 2 Ethibond sutures. With dynamic inflation of the left ventricle and
pressurization I then adjusted the height of the new Wright-Shant cords to the posterior leaflet in order to promote a posterior coaptation margin to reduce the risk of systolic anterior motion. I opted to leave the calcification on the anterior
leaflet alone as it did not appear to be affecting the coaptation margin. A full left atrial maze was performed using cryoablation, see the above listed lesion lines. The left atrial appendage was also verified be free of any thrombus or debris
preoperatively and found to be totally occlusive postoperatively after ligating it across the transverse sinus. At the conclusion of the case there was no residual mitral valve insufficiency, there is no systolic anterior motion of the mitral valve
leaflets, and the mean gradient across the mitral valve was 3 mmHg. As mentioned, his cardiac index did improved to 2.6 on 5 dobutamine. He did require 1 defibrillatory event at 200 J immediately after the clamp was removed likely from air
entrainment down the right coronary ostia. He easily recovered from this and did not require any additional cardioversions.
Description of Procedure: The patient was brought to the operating room and placed supine in the table with their right side bumped up and right arm down. Arterial and central access was performed by anesthesiology. The patient was prepped from chin
to toes in the typical sterile fashion. Trans esophageal evaluation of cardiac function and all valvular structures was conducted. Before commencing, a time out was performed by all members of the team. All were in agreement with the procedure and
laterality and I proceeded. A small right groin incision was made to expose the common femoral artery and vein. A 5-6 cm right lateral muscle sparing thoracotomy sweeping the pec major muscle cephalad at the serratus anterior was performed over the
4th intercostal space verified by visualization of the hilum. A total of 60,000 units of heparin was given. The common femoral artery and vein were cannulated under transesophageal guidance using open Seldinger technique. The arterial line was
verified to have an appropriate bounce and pressure correlating with testing. Once the ACT was above 400, retrograde autologous priming was done and we commenced cardiopulmonary bypass. Target core temperature was 34�C.
Carbon dioxide was used to flood the field. The course of the phrenic nerve was identified to prevent injury. The pericardium was opened and two stay sutures were placed to facilitate a ``pericardial table.�� A central tendon suture was placed in
order to retract the liver anteriorly and inferiorly. The oblique sinus was developed followed by the inter atrial groove. An antegrade root vent was inserted and secured with a pursestring suture. The pump flow and mean arterial pressure were
lowered and an aortic cross clamp was applied to the ascending aorta. A total of 1.2L initial dose of Antegrade cardioplegia was delivered. We had rapid electro myocardial quiescence at 400 cc of cardioplegia. The ventricle was monitored for
distension by echocardiogram during this time. Once the heart was fully arrested he was then emptied via the root vent and the left atrial appendage was ligated across the transverse sinus. The left atrium was incised and enlarged. A left atrial
lift retractor was placed. The mitral valve was inspected. Cryo maze was then performed. The mitral valve was repaired as described above. There were 2 small iatrogenic ASD's from his previous ablations and these were closed with 4-0 Prolene in a
running fashion using over and over stitch. The left atriotomy was closed with 3-0 prolene in a running fashion leaving a ventricular vent in place to de-air. After filling the heart, the vent was removed and the prolene was secured with a corknot.
Unipolar ventricular pacing wire was placed on the base of the right ventricle. The patient was placed into Trendelenburg position and pump flows were lowered. The clamp was slowly removed with the root vent turned on. De-airing maneuvers were
performed. We started to rewarm with a target of 36.5�C. There was some bleeding from the chest wall puncture site for the retraction stitch of the diaphragm this was manage using a 5 mm 30 degree camera with direct electrocautery to this area and
packing with fibrillar.
As the heart recovered, the mitral valve and ventricular function were assessed under transesophageal echocardiogram. The LV vent and root vents were removed. Once weaning parameters were satisfactory, cardiopulmonary bypass flow was lowered until
we were off cardiopulmonary bypass the mitral valve was inspected again. All surgical sites were inspected for hemostasis and appeared appropriate. We briefly resumed cardiopulmonary bypass to remove the root vent and the pericardium was
approximated with 2-0 ethibond sutures secured with corknots. The lines were clamped and the arterial was relocated to the venous cannula to give back volume. A test dose of protamine was delivered and patient was monitored for any adverse reactions
followed by complete protamine dosing. The femoral vessels were decannulated and repaired as indicated. One 19F Casey drain remained in the pleural space and threaded into the pericardium. There was an excellent palpable distal pulse to the BEATER BOSS
cannulation site. Local analgesia was injected to the thoracotomy. The incision was closed in layers in a running fashion.
All instrument, sponge, and needle counts were confirmed to be correct x 2 at the end of the operation. The patient was transferred to the cardiac intensive care unit in critical but stable condition.
I, Dr. Dane Spencer, was present, scrubbed for, and performed all critical elements of this procedure.
Dane Spencer MD, MS
Cardiothoracic Surgeon
[facility]
This dictation was created using the [employer] dictation system. Please excuse any grammatical, typographical, or 'sound alike' errors
[2025-09-07 12:31] LABS: Glucose - Point of Care 91 mg/dl (70-99)
[2025-09-07] MEDS: ANCEF 10 IV ×2 (12:36→12:38)
[2025-09-07 12:38] LABS: Hematocrit 40.4 % (39.0-52.0); Hemoglobin 13.1 g/dL (13.0-18.0); Platelet Count 128 10^3/uL (130-400)
[2025-09-07] MEDS: NSS 500 IV (12:38)
[2025-09-07 12:46] LABS: B.E. -0.9 mmol/L; HCO3 25.8 mmol/L (21-28); O2 Saturation % 92.0 % (94-98); PCO2 50 mmHg (35-48); PO2 64 mmHg (83-108); Potassium 3.6 mMOL/L (3.5-5.1); Sodium 139 mMOL/L (136-145)
[2025-09-07] MEDS: DILAUDID 0.5 MG IV (12:46)
[2025-09-07 12:47] LABS: INR 1.35; PT 17.2 Sec (11.4-14.6)
--- NOTE | 2025-09-07 12:47 | CON.INTV ---
Consultation
Consultation Request
Date/Time Consultation Requested: 09/07/2025-12:30 PM
Date/Time Consultation Performed: 09/07/2025-1 PM
Requesting Provider: Cardiovascular surgery
Performing Provider: Dr. Correa
Reason for Consultation: Postoperative ventilator/critical care management
Medical History
-
Chief Complaint: Mitral valve disease
History of Present Illness:
69-year-old never smoking male with a history of hypertension, atrial fibrillation, osteoporosis, BPH, and significant mitral valve prolapse underwent mitral valve repair and steel heater consulted for postoperative ventilator/critical care
management 09/07/2025. Patient is sedate postoperatively and adequate review of systems was unobtainable.
Past Medical History
Past Medical History: None (Hypertension. Mitral valve prolapse. Atrial fibrillation/history of ablation and cardioversion. BPH. Osteopenia. Tonsillectomy. Hernia repair. Pilonidal cyst.)
Social History
Tobacco: Non-smoker
Alcohol: Occasional
Drug: None
Personal:
Living: With Family
Occupational Exposures: No known asbestos exposure
Environmental Exposures: No known tuberculosis exposure
Family History
Family History: Reviewed & Not Pertinent (Father-bladder cancer, mother-atrial fibrillation CVA and hypertension. Paternal grandfather bladder cancer.)
Allergies / Home Medications
Allergies
Allergy/AdvReac Type Severity Reaction Status Date / Time
pollen extracts Allergy seasonal Verified 08/24/25 16:41
allergies
lisinopril AdvReac cough Verified 08/24/25 16:41
Home Medications
�Medication �Instructions �Recorded �Confirmed �Last Taken �Type
coenzyme Q10 300 mg capsule (Co 300 mg PO DAILY Supplement 10/30/23 09/07/25 08/30/25 History
Q-10)
finasteride 5 mg tablet 5 mg PO DAILY Urinary Issue 10/30/23 09/07/25 09/06/25 History
loratadine 10 mg tablet 10 mg PO DAILY Allergies 10/30/23 09/07/25 09/06/25 History
multivitamin 1 tab PO DAILY Supplement 10/30/23 09/07/25 08/30/25 History
tamsulosin 0.4 mg capsule 0.4 mg PO DAILY Urinary Issue 10/30/23 09/07/25 09/06/25 History
ascorbic acid (vitamin C) 500 mg 250 mg PO BID Supplement 12/22/23 09/07/25 08/30/25 History
tablet (Vitamin C)
empagliflozin 10 mg tablet 10 mg PO DAILY Heart 12/22/23 09/07/25 09/03/25 History
(Jardiance) Disease/Condition
acetaminophen 500 mg tablet 1,000 mg PO BID Pain 06/05/25 09/07/25 09/06/25 19:00 History
calcium carbonate 500 mg PO BID Supplement 06/05/25 09/07/25 08/30/25 History
psyllium 1 packet PO DAILY Constipation 06/05/25 09/07/25 09/06/25 07:00 History
valsartan 40 mg tablet 40 mg PO DAILY Blood Pressure 06/05/25 09/07/25 09/04/25 History
cholecalciferol (vitamin D3) 25 25 mcg PO DAILY Supplement 08/24/25 09/07/25 08/30/25 History
mcg (1,000 unit) capsule (Vitamin
D3)
nonhihtklgg-ajjnzoxxs-rbo C-Mn 500 3 cap PO DAILY Supplement 08/24/25 09/07/25 08/30/25 History
mg-400 mg capsule (Glucosamine
Chondroitin Maximum Strength)
lysine 1,000 mg tablet 1,000 mg PO DAILY Supplement 08/24/25 09/07/25 08/30/25 History
magnesium oxide 250 mg PO DAILY Electrolyte 08/24/25 09/07/25 08/30/25 History
Repletion
apixaban 5 mg tablet (Eliquis) 5 mg PO BID Blood Clot 09/07/25 09/07/25 09/03/25 History
Prevention/Tx
eplerenone 25 mg tablet 25 mg PO DAILY Heart 09/07/25 09/07/25 09/06/25 History
Disease/Condition
furosemide 40 mg tablet (Lasix) 40 mg PO DAILY Fluid 09/07/25 09/07/25 09/06/25 07:00 History
Retention/Swelling
metoprolol succinate 25 mg 12.5 mg PO BID Heart 09/07/25 09/07/25 09/06/25 20:00 History
tablet,extended release 24 hr Disease/Condition
Review of Systems
-
Unable to Obtain full review of systems at this time due to: Other ( per HPI)
Vitals / Labs / Diagnostic Testing
Vital Signs
Temp Pulse Resp BP Pulse Ox
96.1 F L 81 14 145/97 92
09/07/25 12:33 09/07/25 12:29 09/07/25 12:29 09/07/25 06:24 09/07/25 12:33
Diagnostic Testing:
Physical Exam
-
Exam:
Well-nourished and well-developed in no apparent distress
HEENT-atraumatic, normocephalic, oral tracheal intubation
Heart-regular rate and rhythm-no murmurs, rubs or gallops
Chest-clear to auscultation, no wheezes, crackles, median sternotomy bandage is not removed
Abdomen soft nondistended
Extremities-no cyanosis, clubbing, edema and good peripheral pulses
Integument-intact, no rashes, lesions or ecchymosis
Neurologically not alert, not oriented, not moving any of his extremities sedated on a ventilator
Assessment
-
69-year-old never smoking male with a history of hypertension, atrial fibrillation, osteoporosis, BPH, and significant mitral valve prolapse underwent mitral valve repair and steel heater consulted for postoperative ventilator/critical care
management 09/07/2025.
Mitral valve prolapse
Status post mitral valve repair/maze/ESLENE-Dr. Spencer 09/07/2025
Mild thrombocytopenia-platelet 128
Conditions present prior to admission:
Hypertension.
Mitral valve prolapse.
Atrial fibrillation/history of ablation and cardioversion.
BPH.
Osteopenia.
Tonsillectomy. Hernia repair. Pilonidal cyst.
Plan
Ventilator settings reviewed
FiO2 will be weaned
Minute ventilation will be adjusted
Arterial blood gases will be monitored
Spontaneous breathing trial will be attempted with hopeful extubation after anesthesia/sedation wear off
Pulmonary artery catheter parameters will be followed
Pressors/antihypertensive/inotropes/diuretics will be provided as needed
Monitor chest tube output
Monitor hemoglobin
Monitor platelet count and coags
Transfuse blood product if needed
CT surgery following chest tubes
Monitor blood sugar
Insulin drip per protocol
Aspiration precautions
VAP prevention protocol
DVT prophylaxis
Early nutrition
Early mobilization
Critical care statement: A total of 50 minutes of critical care time was provided for this patient today. This includes management of ventilator, spontaneous breathing trial, arterial blood gases, pressors, of unstable vital signs, evaluation of the
patient at bedside, reviewing the patient's pertinent medical records including radiographs, microbiology, laboratory evaluations, and discussion with primary team and critical care nursing.
Diagnostic data:
Chest x-ray 10/30/2023-small bilateral pleural effusions
CT chest abdomen and pelvis 08/30/2025-lungs are clear, mild dilation of ascending thoracic aorta measuring 3.8 cm, enlarged prostate gland, multilobulated solid mass within the left side of the pelvis adjacent to the prostate gland measuring 4.6
cm, consider yearly PSA or pelvic MRI, diffuse wall thickening suggesting cystitis or bladder outlet obstruction
Echocardiogram 08/01/2025-EF 62%, moderate to severe mitral valve regurgitation
Transesophageal echocardiogram 08/11/2025-EF 60-65%, prolapse of posterior leaflet with flail P2, P3 of segments
Cardiac catheterization 08/11/2025-trivial luminal irregularities, mildly elevated biventricular filling pressures, no aortic stenosis
Data Reviewed
-
EKG: Report reviewed by me
Radiology: Report reviewed by me
CT Scan: Report reviewed by me
Medical Tests (Nuc Med, Echo etc): Report reviewed by me
Labs: Labs reviewed by me
Old Records: Reviewed
Critical Care Time (in minutes): 50
[2025-09-07 12:48] LABS: APTT 30.3 Sec (23.4-35.0)
[2025-09-07 12:49] LABS: Blood Urea Nitrogen 19 mg/dl (9-20); Estimated Creatinine Clearance 113 ml/min; Glucose 95 mg/dl (70-99); Magnesium 2.6 mg/dl (1.6-2.3)
[2025-09-07] MEDS: KCL 50 IV ×2 (12:51→13:53)
--- NOTE | 2025-09-07 13:00 | PTCARENOTE ---
Patient received from CVOR s/p mini thoracotomy/radical MV repair. Intubated via 8.0 ETT, set to ventilator @ 60% FiO2, titrating as able. NSR w/first degree heart block/frequent ectopy noted. RIJ Cordis/Savery-Kita catheter, L radial arterial lines
present - leveled, flushed, and calibrated w/good waveforms returned. Epicardial V-wire to pulse generator at backup rate 40bpm, wire disconnected but tied to box for easy access. Pericardial drain threaded through the R pleural space, R lateral
terminating to Pleurevac, set to -20cm suction w/no air leak noted. Bassett catheter to gravity. All procedural sites stable. Khushboo Hugger applied for low core temp. Labs drawn, EKG performed, pcxr obtained. See work list for full assessment,
interventions performed, and intravenous infusions and titrations.
[2025-09-07 13:02] LABS: Glucose - Point of Care 108 mg/dl (70-99)
[2025-09-07 13:16] LABS: B.E. -3.4 mmol/L; HCO3 23.6 mmol/L (21-28); O2 Saturation % 96.3 % (94-98); PCO2 49 mmHg (35-48); PO2 77 mmHg (83-108)
[2025-09-07] MEDS: TYLENOL PO (13:35)
--- NOTE | 2025-09-07 13:40 | W.PN.CD ---
Addendum entered and electronically signed by Rehan Skelton MD 09/07/25 16:03:
I saw and examined the patient independently, and performed majority of MDM.
The GROUND INSTRUCTOR ADVANC[employer]'s note was reviewed and I agree with the note with changes/additions below.
Comment:
69 y/o male with paroxysmal AFIB, with hx ablation (on Eliquis), PVC's, chronic HFpEF, HTN, and and severe mitral regurgitation who is now s/p MV repair today. He is weaning from drips and vent. Exam with RRR, no murmurs, trace edema. EKG: NSR, 1st
degree AVB, PVC's. PERICO: EF 55-60%.
s/p MV repair. Continue weans drips, vent.
Paroxysmal Afib. Stable in sinus. To resume eliquis when safe post op.
Original Note:
Today's Communication / Plan
-
Close post-op monitoring and care with weaning of drips and vent as tolerated per CT surgery/CVICU protocol
Impression / Plan
-
69 y/o male (follows with Dr. Dos Santos) with AFIB with hx ablation (on Eliquis), PVC's, HFpEF, HTN, and and severe mitral regurgitation who is now s/p MV repair.
Severe mitral regurgitation:
-s/p right mini thoracotomy with radical mitral valve repair, cryoablation, left atrial maze and left atrial appendage exclusion, iatrogenic atrial septal defect closure from previous ablations, done primarily, Dr. Spencer 09/07/25
-on dobutamine and nicardipine drips post-operatively
-SR with 1st degree AVB on EKG and telemetry post-op, follow
-pacer wires, Bassett, CT's in place
HFpEF:
-chronic
-monitor volume post-op
PAF:
-stable in SR post-op, procedure as above
-resume Eliquis when safe
HTN:
-monitor BP post-op
-on ARB, BB, MRA as OP
PVC's:
-BB and follow telemetry
Physical Exam
Vital Signs/Labs
Vital Signs
Temp Pulse Resp BP Pulse Ox
96.5 F L 76 14 145/97 95
09/07/25 13:00 09/07/25 13:00 09/07/25 13:00 09/07/25 06:24 09/07/25 13:38
09/06/25 09/07/25 09/08/25
06:59 06:59 06:59
Actual Weight 96.4 kg
09/07/25 12:28
PT 17.2 Sec (11.4-14.6) H 09/07/25 12:28
INR 1.35 09/07/25 12:28
APTT 30.3 Sec (23.4-35.0) 09/07/25 12:28
Magnesium 2.6 mg/dl (1.6-2.3) H 09/07/25 12:28
Physical Exam
Constitutional: No acute distress
EENT: Anicteric
Cardiovascular: Rhythm & rate is regular
Respiratory: Lungs clear to auscul. and Other (intubated and ventilated)
Neuro/Psych: AO x 3
Other: Skin (right side chest dressing without any drainage, well-approximated)
Data Reviewed
-
Date of Service: September 07, 2025
EKG: Tracing Personally Visualized and interpreted (SR with 1st degree AVB, PVC's)
Labs: Labs Reviewed by me
[2025-09-07 14:02] LABS: Glucose - Point of Care 134 mg/dl (70-99)
[2025-09-07 14:07] LABS: B.E. -2.6 mmol/L; HCO3 23.2 mmol/L (21-28); O2 Saturation % 97.8 % (94-98); PCO2 43 mmHg (35-48); PO2 85 mmHg (83-108)
[2025-09-07] MEDS: OFIRMEV 100 IV (14:07)
--- NOTE | 2025-09-07 14:22 | W.PN.UPDATE ---
Update Note
Progress Note Update
69 year old male electively admitted 09/07/25 for mitral valve repair, MAZE, GINI clip due to mitral regurgitation, AF
IV fluids: 1200
U.O.:� 725
Blood:� none
Cell saver: 200
Wires:� V-wires
Drips: Dobut @ 5, Levophed @ 2, Cardene @ 2, Precedex @ 0.5
�
NEURO: sedated, pupils +2mm B/L
RESP: #8OT @24cm> 500/40%/14/5. Lungs clear B/L. R pleural (0cc on arrival) chest tubes to -20cm suction. Sanguineous drainage
CV: RRR +S1, S2, no S3, no�rub, no murmur. Dermabond to right anterior mini thoracotomy. RIJ w/[place] locked @ 49cm. PA 32/15; CVP 4 ; C.O 5.9/CI 2.7
ABD: round, soft, no BS
EXT: no edema, +2/4 DP pulses B/L, no femoral bruit, R femoral cannulation site intact; left radial A-line intact
: Bassett with clear yellow urine
�
A/P: POD #0 s/p Radical mitral valve Repair (Imbrication of P2 onto P3, cleft closure, neochordoplasty x 3 to posterior leaflet, Annuloplasty with 38mm Band), Cryoablation, left atrial maze, eft atrial appendage exclusion with a 35 mm clip.
Iatrogenic atrial septal defect primary closure from previous ablations
PERICO: EF�55-60%, mild MR/TR, MV mean 3mmHg
- wean and extubate
- will need instruction regarding antibiotic prophylaxis for dental and invasive procedures
�
# acute surgical blood loss anemia-expected
- trend CBC
�
# Hx AF s/p PVI 2007
- Mobitz I-holding beta-cipriano/Amio
- will resume Eliquis once drain tubes removed
�
# BPH
- resume�Finasteride
# HTN
- on Valsartan, Eplerenone, Lasix at home
[2025-09-07 15:04] LABS: Glucose - Point of Care 142 mg/dl (70-99)
[2025-09-07 15:45] LABS: B.E. -2.0 mmol/L; HCO3 22.3 mmol/L (21-28); O2 Saturation % 96.3 % (94-98); PCO2 36 mmHg (35-48); PO2 74 mmHg (83-108); Potassium 4.5 mMOL/L (3.5-5.1)
--- NOTE | 2025-09-07 16:00 | PTCARENOTE ---
Patient exhibited breaths above set ventilator rate. CPAP wean initiated. No apnea noted, good TV observed. ABG obtained, results conveyed to ADRIANA Braden. Patient extubated to 6lnc w/out incident, SaO2 @ 94%.
[2025-09-07 16:03] LABS: Glucose - Point of Care 158 mg/dl (70-99)
[2025-09-07] MEDS: CALCIUM GLUCONATE 100 IV (16:09)
[2025-09-07 16:16] LABS: Hematocrit 41.4 % (39.0-52.0); Hemoglobin 13.4 g/dL (13.0-18.0); Platelet Count 133 10^3/uL (130-400)
[2025-09-07 17:02] LABS: Glucose - Point of Care 149 mg/dl (70-99)
[2025-09-07 18:03] LABS: Glucose - Point of Care 131 mg/dl (70-99)
[2025-09-07 19:00] LABS: Glucose - Point of Care 100 mg/dl (70-99)
[2025-09-07] MEDS: ROXICODONE 5 MG PO (19:22)
[2025-09-07] MEDS: ANCEF 5 IV (19:23)
[2025-09-07] MEDS: SENOKOT 8.6 MG PO (19:23)
--- NOTE | 2025-09-07 20:00 | PTCARENOTE ---
Assumed care of the patient at 1900. Patient in bed, family at bedside, AOx3, drowsy. SR with a 1st degree HB on the monitor and frequent ectopy, good pulses, no edema, heart tones audible; epicardial V wire to backup rate of 40/14/0.8; wire tied to
pacer box. Lungs clear on 4LNC, increased to 6LNC following ABG per CVPA; CTx1 to -20 cm wall suction, no air leak, tidaling, or crepitus noted. Abdomen SNT, hypoactive BS, tolerating water and ice chips without nausea. Bassett catheter draining clear
yellow urine. All surgical sites stable and intact. RIJ Cordis/cyndy @ 45, PIV x1, L radial art line; all applicable lines leveled, zeroed, and flushed. On dobut, cardene, and insulin. Pt given oxycodone for pain, plan of care and optimal pain
management discussed. See work list for additional titration details and nursing interventions.
[2025-09-07 20:06] LABS: Glucose - Point of Care 105 mg/dl (70-99)
[2025-09-07 20:29] LABS: B.E. -3.8 mmol/L; HCO3 20.7 mmol/L (21-28); O2 Saturation % 96.1 % (94-98); PCO2 35 mmHg (35-48); PO2 71 mmHg (83-108); Potassium 4.4 mMOL/L (3.5-5.1)
[2025-09-07] MEDS: SODIUM BICARBONATE 50 MEQ IV (22:07)
[2025-09-07] MEDS: TYLENOL 975 MG PO (22:07)
[2025-09-07] MEDS: NEURONTIN 100 MG PO (22:07)
[2025-09-07] MEDS: DILAUDID 0.25 MG IV (22:09)
[2025-09-07 22:10] LABS: Glucose - Point of Care 110 mg/dl (70-99)
[2025-09-07 22:52] LABS: B.E. 1.4 mmol/L; HCO3 24.9 mmol/L (21-28); O2 Saturation % 96.8 % (94-98); PCO2 35 mmHg (35-48); PO2 71 mmHg (83-108)
[2025-09-07 23:09] LABS: Magnesium 2.2 mg/dl (1.6-2.3)
[2025-09-08] VITALS (30 sets, daily range): BP systolic 102–145; BP diastolic 51–78; BMI 30.8
--- NOTE | 2025-09-08 | PTCARENOTE ---
Increased ectopy around 2200, critical AV dissociation and accelerated junctional rhythm on EKG. Metoprolol and amio placed on hold/held. Cardene titrated. Switched to nitro and then off for SBP goal 90-130. Additional pain management. Switched to
10L midflow NC. Labs drawn and sent, see work list.
[2025-09-08 00:08] LABS: Glucose - Point of Care 98 mg/dl (70-99)
[2025-09-08 02:21] LABS: Glucose - Point of Care 130 mg/dl (70-99)
--- NOTE | 2025-09-08 02:28 | W.PN.CT ---
Today's Communication / Plan
-
-pod #1
-frequent PVCs, couplets, bigeminy postop
-? junctional rhythm last night. This am in nsr with Mobitz 1 AVB- held Amio and BB. Will review with Cardiology
-CI 4.11, CO 8.79, SVR 609. Drips: Dobut 2, Nitro 20, Insulin
-CT output: R pleur 85/155 in 12/24 hrs
-maintain swan, pw, Bassett
-wean Dobut as tolerated
-encourage IS, OOB
Assessment / Plan
-
- s/p Right mini thoracotomy with Radical mitral valve Repair (Imbrication of P2 onto P3, cleft closure, neochordoplasty x 3 to posterior leaflet, Annuloplasty with 38mm Band); Cryoablation, left atrial maze and left atrial appendage exclusion with
a 35 mm clip; Iatrogenic atrial septal defect closure from previous ablations, done primarily by Dr. Spencer on 09/07/25, pod #1
- Intraop PERICO: LVEF preop was 60% with a dilated left ventricle. His cardiac index preoperatively under anesthesia with the [place] in place was 1.3 without inotropic support. Following surgery his EF did remain the same at 60% and his cardiac index
was significantly improved to 2.6 on 5 of Dobutrex. At the conclusion of the case, there was no residual mitral valve insufficiency, there is no systolic anterior motion of the mitral valve leaflets, and the mean gradient across the mitral valve was
3 mmHg.
- Degenerative mitral valve disease, severe regurgitation secondary to prolapse and flail of P2 and P3 [type II pathology]
- Acute on chronic congestive heart failure with severely depressed cardiac index at 1.3
- Chronic atrial fibrillation on anticoagulation (Eliquis)
- BPH
- Hypogonadism
- Osteopenia
- PVCs
- Hypertension
- Acute postop blood loss anemia
- Acute postop thrombocytopenia
- Acute postop atelectasis/pulmonary insufficiency
- Acute postop hypovolemia with subsequent hypervolemia
- Acute postop ventricular ectopy
- Suspected acute postop junctional rhythm (CHB off pump)
Discussed patient care with: Nursing and Care Team
Subjective
-
Date of Service: September 08, 2025
Objective Data
-
PT 17.2 Sec (11.4-14.6) H 09/07/25 12:28
INR 1.35 09/07/25 12:28
APTT 30.3 Sec (23.4-35.0) 09/07/25 12:28
Vital Signs
Vital Signs
Temp Pulse Resp BP Pulse Ox
99.3 F 83 20 119/63 97
09/08/25 02:00 09/08/25 02:15 09/08/25 02:15 09/08/25 02:00 09/08/25 02:15
CT Intake/Output/Weight
09/07/25 09/07/25 09/08/25
06:59 18:59 06:59
Intake Total 303.2 / 1067.9 764.7 / 1067.9
Output Total 690 / 1025 335 / 1025
Balance -386.8 / 42.9 429.7 / 42.9
SaO2: 97
Physical Exam
-
General: Awake and AOx3
Cardiovascular: Regular rate & rhythm, No Murmurs and No Rub
Respiratory: Decreased Breath Sounds
Sternum: Stable
Incision: Clean, Dry and Intact
Extremities: Other (varicose veins b/l, trace edema on R and 1+ edema on L (chronic))
Data Reviewed
-
Lab Results: Results Reviewed
Medications: Active Meds Reviewed
Chest X-Ray: Report Reviewed and Image Reviewed
ECG: Report Reviewed and Image Reviewed
[2025-09-08] MEDS: ROXICODONE 5 MG PO ×3 (02:29→17:28)
[2025-09-08] MEDS: LR 250 ML IV ×2 (02:33→06:41)
[2025-09-08 04:21] LABS: Glucose - Point of Care 91 mg/dl (70-99)
[2025-09-08 04:32] LABS: B.E. -1.7 mmol/L; HCO3 21.7 mmol/L (21-28); O2 Saturation % 98.3 % (94-98); PCO2 32 mmHg (35-48); PO2 87 mmHg (83-108); Potassium 4.5 mMOL/L (3.5-5.1)
[2025-09-08 04:40] LABS: Hematocrit 36.5 % (39.0-52.0); Hemoglobin 12.4 g/dL (13.0-18.0); Mean Corp Hgb Conc. 34.0 g/dL (33.0-37.0); Mean Corpuscular Volume 88.6 fL (80.0-94.0); Platelet Count 124 10^3/uL (130-400); Red Cell Dist. Width 13.0 % (11.5-14.5)
[2025-09-08] MEDS: ANCEF 5 IV ×2 (04:56→13:28)
[2025-09-08 04:59] LABS: Blood Urea Nitrogen 23 mg/dl (9-20); Calcium 8.7 mg/dl (8.4-10.2); Carbon Dioxide 25 mmol/L (22-30); Chloride 108 mmol/L (98-107); Estimated Creatinine Clearance 113 ml/min; Glucose 112 mg/dl (70-99); Magnesium 2.2 mg/dl (1.6-2.3); Potassium 4.3 mmol/L (3.5-5.1); Sodium 135 mmol/L (135-145); eGFR > 60.00
[2025-09-08] MEDS: TYLENOL 975 MG PO ×3 (05:00→21:09)
[2025-09-08 05:56] LABS: Hepatitis C Antibody Negative (Negative)
[2025-09-08 06:12] LABS: Glucose - Point of Care 122 mg/dl (70-99)
--- NOTE | 2025-09-08 07:31 | W.PN.INTV ---
Today's Communication / Plan
Recommendations
Tolerated extubation
Wean FiO2
Monitor chest tube output
Dobutamine continues
Insulin drip continues
Assessment
-
69-year-old never smoking male with a history of hypertension, atrial fibrillation, osteoporosis, BPH, and significant mitral valve prolapse underwent mitral valve repair and bracelet former consulted for postoperative ventilator/critical care
management 09/07/2025.
Mitral valve prolapse
Status post radical mitral valve repair/maze/LAAE-Dr. Spencer 09/07/2025
Mild thrombocytopenia-platelet 128
Conditions present prior to admission:
Hypertension.
Mitral valve prolapse.
Atrial fibrillation/history of ablation and cardioversion.
BPH.
Osteopenia.
Tonsillectomy. Hernia repair. Pilonidal cyst.
Plan
Tolerated extubation
Wean FiO2-currently on 10 L
Incentive spirometry encouraged
Nebulizers if needed-currently not bronchospastic
Pulmonary artery catheter parameters will be followed-Will likely continue today
Pressors/antihypertensive/inotropes/diuretics will be provided as needed-still on dobutamine
Monitor chest tube output
Monitor hemoglobin
Monitor platelet count and coags
Transfuse blood product if needed
CT surgery following chest tubes
Monitor blood sugar
Insulin drip per protocol continues
Aspiration precautions
VAP prevention protocol
DVT prophylaxis
Early nutrition
Early mobilization
Critical care statement: A total of 40 minutes of critical care time was provided for this patient today. This includes management of pressors/inotropes, of unstable vital signs, evaluation of the patient at bedside, reviewing the patient's
pertinent medical records including radiographs, microbiology, laboratory evaluations, and discussion with primary team and critical care nursing.
Diagnostic data:
Chest x-ray 10/30/2023-small bilateral pleural effusions
CT chest abdomen and pelvis 08/30/2025-lungs are clear, mild dilation of ascending thoracic aorta measuring 3.8 cm, enlarged prostate gland, multilobulated solid mass within the left side of the pelvis adjacent to the prostate gland measuring 4.6
cm, consider yearly PSA or pelvic MRI, diffuse wall thickening suggesting cystitis or bladder outlet obstruction
Echocardiogram 08/01/2025-EF 62%, moderate to severe mitral valve regurgitation
Transesophageal echocardiogram 08/11/2025-EF 60-65%, prolapse of posterior leaflet with flail P2, P3 of segments
Cardiac catheterization 08/11/2025-trivial luminal irregularities, mildly elevated biventricular filling pressures, no aortic stenosis
Subjective Dataa
Subjective Data
Date of Service:
Date of Service: September 08, 2025
Chief Complaint: Solar Installer Follow Up, Pulmonary Follow Up and Vent Management Follow Up
Subjective:
tolerated extubation, still on 10 L oxygen, still on dobutamine, no complaints of shortness of breath, pain controlled, no abdominal pain
Review of Systems
General: Other (Per HPI)
Objective Data
Data Reviewed
Vital Signs / I&O / Oxygen:
Vital Signs
Temp Pulse Resp BP Pulse Ox
98.8 F 79 19 108/56 94
09/08/25 07:00 09/08/25 07:00 09/08/25 07:00 09/08/25 07:00 09/08/25 07:00
Intake and Output
09/07/25 09/08/25 09/09/25
06:59 06:59 06:59
Intake Total 1665.0 / 1973.5 308.5 / 308.5
Output Total 1125 / 1145
Balance 540.0 / 828.5 288.5 / 288.5
SaO2 [CPAP] 95
SaO2 [SIMV] 92
SaO2 94
Nasal Cannula flow liters per 6
minute
Physical Exam
General: Respiratory Distress and Comfortable
HEENT: Normocephalic, Anicteric and Moist Mucous Membranes
Cardiovascular: Regular Rhythm
Respiratory: Wheeze (n), Crackles (Few basilar), Rhonchi (n), Non-Labored Respirations, Accessory Resp Muscle Use (n), Stridor (n) and Chest Tube
GI: Soft, Non Distended and Non Tender
Neurology: Awake, Alert and No Motor Deficits
Skin: Warm, Good Color, Cyanosis (n) and Jaundice (n)
Labs/Micro/Reports
Lab Data
09/08/25 04:18
09/08/25 04:18
Laboratory Results
09/07/25 09/07/25 09/07/25
12:27 12:28 12:59
PT 17.2 H
INR 1.35
APTT 30.3
pH 7.32 L 7.29 L
pCO2 50 H 49 H
pO2 64 L 77 L
HCO3 25.8 23.6
O2 Delivery Level Not Reportable
09/07/25 09/07/25 09/07/25
14:00 15:27 20:17
PT
INR
APTT
pH 7.34 L 7.40 7.38
pCO2 43 36 35
pO2 85 74 L 71 L
HCO3 23.2 22.3 20.7 L
O2 Delivery Level
09/07/25 09/08/25
22:44 04:18
PT
INR
APTT
pH 7.46 H 7.44
pCO2 35 32 L
pO2 71 L 87
HCO3 24.9 21.7
O2 Delivery Level
--- NOTE | 2025-09-08 08:00 | PTCARENOTE ---
pt received from previous RN, oriented, in bed. pt in a Mobitz I w/ ectopy per Dr. Dos Santos, HR 60-70s. V wires in place, VVI 30/14. PAP 40s/10s, CVP ~5, CI >2. Dobutamine gtt running as ordered. palpable pulses. pt on 8LMF, 93-94% POX. lungs
diminished. IS encouraged, 500-1000ml. CTx1, no air leak or crepitus noted. pt abdomen s/n, denies n/v. +BS. tolerating clears. Bassett in place, BIOMECHANICAL ENGINEER aware of UO. R chest surgical incisions intact. CT site c/d/i. R groin incision CATCHER PLUG, approximated. RIJ
cordis/renettaan maintained. L radial [place] flushed, zeroed, and calibrated. PIV. insulin gtt running as ordered. see worklist for VS, I&O, and assessment.
[2025-09-08] MEDS: MAGNESIUM OXIDE 400 MG PO ×2 (08:12→21:09)
[2025-09-08] MEDS: LIDOCAINE 4% PATCH 1 PATCH TOPICAL (08:13)
[2025-09-08] MEDS: LOW STRENGTH ASPIRIN 81 MG PO (08:13)
[2025-09-08] MEDS: SENOKOT 8.6 MG PO ×2 (08:13→21:09)
[2025-09-08] MEDS: NEURONTIN 100 MG PO ×3 (08:13→21:09)
[2025-09-08] MEDS: PROTONIX 40 MG PO (08:13)
[2025-09-08] MEDS: BACTROBAN 2% OINTMENT 1 APPLIC NASAL ×2 (08:14→21:09)
[2025-09-08 08:24] LABS: Glucose - Point of Care 93 mg/dl (70-99)
[2025-09-08] MEDS: DILAUDID 0.25 MG IV (10:01)
[2025-09-08] MEDS: FLEXBUMIN 50 IV ×2 (10:01→17:24)
[2025-09-08] MEDS: LASIX 40 MG IV (10:01)
--- NOTE | 2025-09-08 10:04 | W.PN.CD ---
Today's Communication / Plan
-
Agree with care
Watch AV conduction
Impression / Plan
-
69 y/o male (follows with Dr. Dos Santos) with AFIB with hx ablation (on Eliquis), PVC's, HFpEF, HTN, and MVP with progressive MR => severe mitral regurgitation who is now s/p MV repair.
MVP with severe mitral regurgitation:
-s/p right mini thoracotomy with radical mitral valve repair, cryoablation, left atrial maze and left atrial appendage exclusion, iatrogenic atrial septal defect closure from previous ablations, done primarily, Dr. Spencer 09/07/25
-On dobuta
-Doing well
AV Node disease
- Baseline 1st degree AV block
- Now with AV Wenckebach, Type I second degree heart block and some blocked PACs
- A few junctional escape beats are producing escape-capture pattern but no persistent heart block
- Anticipate AV conduction will improve
- Watch for need of cardiac pacing
HFpEF, preop was on eplerenone, Jardiance, Valsartan 40, Lasix
Persistent AF: ablation 2007 ([facility]), 01/07/2024 ([facility]), and surgical 09/07/2025 ([facility])
HTN
PVC's
Subjective: Feels well
Data:
Intraop PERICO 09/07/2025: Post-op: S/p MV-repair, s/o MR, no MS, mean MV 3. normal LV/RV fxn, s/p GINI exclusion, s/p PFO closure. Severe LAE, mild CHRIST,
PERIOC 08/11/2025: pMVP with flail of P2/P3, severe eccentric anteriorly directed MR, LVEF 60-65%, normal RV
Cath 08/11/2025: RA 12, PA 52/15, PCWP 21, only luminal CAD, no
PERICO 02/17/2024: pMVP, mod eccentric MR, LVEF 55-60%
Redo PVI 01/07/2024 (Initial PVI at [facility] in 2007): RFA, PVI ([facility]), roof line, posterior wall. LA 9 mmHg
Physical Exam
Vital Signs/Labs
Vital Signs
Temp Pulse Resp BP Pulse Ox
99 F 67 18 120/62 97
09/08/25 09:00 09/08/25 09:00 09/08/25 09:00 09/08/25 09:00 09/08/25 09:01
09/07/25 09/08/25 09/09/25
06:59 06:59 06:59
Actual Weight 96.4 kg 97.3 kg
09/08/25 04:18
09/08/25 04:18
PT 17.2 Sec (11.4-14.6) H 09/07/25 12:28
INR 1.35 09/07/25 12:28
APTT 30.3 Sec (23.4-35.0) 09/07/25 12:28
Magnesium 2.2 mg/dl (1.6-2.3) 09/08/25 04:18
Physical Exam
Constitutional: No acute distress
EENT: Anicteric
Cardiovascular: Rhythm & rate is regular and Pedal edema is absent
Respiratory: Respiratory effort normal and Lungs clear to auscul.
GI: Soft and Distention absent
Neuro/Psych: AO x 3
Data Reviewed
-
Date of Service: September 08, 2025
[2025-09-08 10:16] LABS: Glucose - Point of Care 127 mg/dl (70-99)
[2025-09-08 10:20] LABS: B.E. -2.3 mmol/L; HCO3 21.2 mmol/L (21-28); O2 Saturation % 97.4 % (94-98); PCO2 32 mmHg (35-48); PO2 72 mmHg (83-108)
--- NOTE | 2025-09-08 11:34 | PTCARENOTE ---
pt VSS, Albumin and Lasix given as ordered. ABG and MVo2 drawn, Berry calculated, SUPREME COURT JUDGE aware of results. Dilaudid 0.25mg IVP given for pain w/ decrease in pain.
[2025-09-08 12:36] LABS: Glucose - Point of Care 120 mg/dl (70-99)
[2025-09-08] MEDS: TORADOL 15 MG IV (12:39)
[2025-09-08] MEDS: FERRLECIT 110 MG IV (13:28)
[2025-09-08] MEDS: NSS IV (13:29)
--- NOTE | 2025-09-08 13:36 | PTCARENOTE ---
Received pt from previous RN; Mobitz I w/ ectopy on monitor and VSS; Epicardial V wire set to VVI 30/14/0.8 and no pacing noted; RIAbel Lopez floated to 48, Left A-line and PIV x1 patent; Dobutamine infusing see flow sheet for details; Insulin
drip discontinued per CTNP orders; Lungs diminished; IS to 750; CT x1 removed by CTNP; positive bowel sounds; Bassett catheter draining blood tinged urine CTNP aware; palpable pulses throughout; no edmea noted; all surgical sites C/D/I; pain
management see MAR for details; family at bedside and updated on plan of day.
[2025-09-08] MEDS: FLEXERIL 5 MG PO (14:05)
--- NOTE | 2025-09-08 15:21 | CM ---
Reviewed chart. Met with Mr. Marrero and his spouse to review discharge plans. He states priro to admission he resides with his spouse in a one story home with two steps to enter, He states he resides in a [facility] plus long-term community, [facility]
. He states they have been there for thirteen years. He states prior to admission he was ambulating with a single point cane because he was SOB. He states he has a walker and single point cane at home. He states he has prescription plan. We
reviewed a home visit by the Transitional Care Nurse. He is agreeable to a home visit. Medical work-up in progress. The discharge plan is to return home with his spouse and a home visit by the Transitional Care Nurse when medically stable.
--- NOTE | 2025-09-08 20:00 | PTCARENOTE ---
Assumed care of the patient at 1900. Patient in bed, family at bedside, AOx3, drowsy. Type 1 second degree HB on CM, good pulses, no edema, heart tones audible; epicardial V wire to backup rate of 30/14/0.8; wire tied to pacer box. Lungs clear on
4LNC. Abdomen SNT, hypoactive BS, tolerating PO intake without nausea. Bassett catheter draining clear sujit/rust colored urine; blood tinged during previous shift, improving. All surgical sites stable and intact. RIJ Cordis/cyndy @ 48, PIV x1, L
radial art line; all applicable lines leveled, zeroed, and flushed. On dobutamine. POC discussed with the patient. Assessment of needs ongoing.
[2025-09-08] MEDS: KCL 20 MEQ PO (21:09)
[2025-09-08] MEDS: REMOVE LIDOCAINE PATCH 1 PATCH REMOVE (21:10)
[2025-09-09] VITALS (31 sets, daily range): BP systolic 121–151; BP diastolic 61–74; PULSE 58; O2SAT 95; BMI 31.5
--- NOTE | 2025-09-09 | PTCARENOTE ---
K+ PO per CVPA. VSS, CHG bath performed, patient repositioned for comfort, pain well controlled, assessment of needs ongoing. Call robert within reach.
[2025-09-09] MEDS: FLEXBUMIN 50 IV (02:32)
--- NOTE | 2025-09-09 02:35 | PTCARENOTE ---
Addendum entered by Elvia Wilson RN 09/09/25 05:22:
Pt also with increased blood tinged urine - previously improved earlier this shift. CVPA at bedside to assess.
Original Note:
Jinny pressures elevated to 150 to high 160's - positional. Cuff pressures 130-140's; CVPA made aware, continue to monitor and defer to cuff pressures at this time.
--- NOTE | 2025-09-09 03:15 | W.PN.CT ---
Addendum entered and electronically signed by Kvng Montilla MD 09/09/25 09:46:
I saw and examined the patient.
The PA's note was reviewed and I agree with the note.
Comment:
DANA [id number]:
POD#2 s/p mini-MVRp, ASD closure, MAZE, ELAA
No major overnight events.� Tm 100.3.� VSS.� RA.� GTTS: dobutamine 1.� UO: 540/1635 +grady, creat 0.8.� Tolerating PO.� Neuro: intact.� CXR: small R effusion.�
-��������� Check MvO2 at 10AM
-��������� Diuresis today
-��������� D/C grady
-��������� Plan OFF dobutamine tomorrow
-��������� Echo pre-discharge on Thursday per protocol
Original Note:
Today's Communication / Plan
-
Plan:
-No major issues overnight. Hemodynamically and neurologically intact
-On Dobutamine @ 2
-Last CI 2.57, MVO2 71%
-Wean dobutamine gtt as tolerated
-Holding BB/Amiodarone while on dobutamine with Mobitz 1
-EP monitoring HB
-Monitor postop hematuria
-Eventual resumption of Eliquis
-Will repeat echo today vs tomorrow to reassess MV Repair
-Maintain swan and a-line while on dobutamine (a-line positional)
-Maintain grady catheter while on dobutamine gtt
-Maintain cordis
-Maintain temporary PW
-Encourage use of IS
-OOB into chair/Ambulate
Assessment / Plan
-
- s/p Right mini thoracotomy with Radical mitral valve Repair (Imbrication of P2 onto P3, cleft closure, neochordoplasty x 3 to posterior leaflet, Annuloplasty with 38mm Band); Cryoablation, left atrial maze and left atrial appendage exclusion with
a 35 mm clip; Iatrogenic atrial septal defect closure from previous ablations, done primarily by Dr. Spencer on 09/07/25, pod #2
- Intraop PERICO: LVEF preop was 60% with a dilated left ventricle. His cardiac index preoperatively under anesthesia with the [place] in place was 1.3 without inotropic support. Following surgery his EF did remain the same at 60% and his cardiac index
was significantly improved to 2.6 on 5 of Dobutrex. At the conclusion of the case, there was no residual mitral valve insufficiency, there is no systolic anterior motion of the mitral valve leaflets, and the mean gradient across the mitral valve was
3 mmHg.
- Degenerative mitral valve disease, severe regurgitation secondary to prolapse and flail of P2 and P3 [type II pathology]
- Acute on chronic congestive heart failure with severely depressed cardiac index at 1.3
- Chronic atrial fibrillation on anticoagulation (Eliquis)
- BPH
- Hypogonadism
- Osteopenia
- PVCs
- Hypertension
- Acute postop blood loss anemia
- Acute postop thrombocytopenia
- Acute postop atelectasis/pulmonary insufficiency
- Acute postop hypovolemia with subsequent hypervolemia
- Acute postop ventricular ectopy
- Suspected acute postop junctional rhythm (CHB off pump)
- Acute postop hematuria
Discussed patient care with: Cardiology, Nursing, Respiratory Therapy, Pharmacy and Care Team
Subjective
-
Date of Service: September 09, 2025
Pt c/o mild incisional pain, otherwise feels well
Objective Data
-
PT 17.2 Sec (11.4-14.6) H 09/07/25 12:28
INR 1.35 09/07/25 12:28
APTT 30.3 Sec (23.4-35.0) 09/07/25 12:28
Vital Signs
Vital Signs
Temp Pulse Resp BP Pulse Ox
100 F 64 20 151/70 96
09/09/25 03:00 09/09/25 03:00 09/09/25 03:00 09/09/25 03:00 09/09/25 03:00
CT Intake/Output/Weight
09/08/25 09/08/25 09/09/25
06:59 18:59 06:59
Intake Total 1361.8 / 1973.5 775.0 / 1078.2 303.2 / 1078.2
Output Total 435 / 1145 1115 / 1490 375 / 1490
Balance 926.8 / 828.5 -340.0 / -411.8 -71.8 / -411.8
SaO2: 96 (4L)
Physical Exam
-
General: Awake, Oriented and AOx3
Cardiovascular: No Murmurs, No Rub and No Gallop
Respiratory: Decreased Breath Sounds (at bases, otherwise clear )
Sternum: Stable
Incision: Clean, Dry, Intact and Dressing Intact
Extremities: Other (+trace edema)
Data Reviewed
-
Lab Results: Results Reviewed
Medications: Active Meds Reviewed
Chest X-Ray: Report Reviewed and Image Reviewed
ECG: Report Reviewed and Image Reviewed
[2025-09-09] MEDS: DILAUDID 0.25 MG IV (03:17)
[2025-09-09 05:06] LABS: Blood Urea Nitrogen 30 mg/dl (9-20); Calcium 8.7 mg/dl (8.4-10.2); Carbon Dioxide 24 mmol/L (22-30); Chloride 106 mmol/L (98-107); Estimated Creatinine Clearance 99 ml/min; Glucose 116 mg/dl (70-99); Magnesium 2.5 mg/dl (1.6-2.3); Potassium 4.6 mmol/L (3.5-5.1); Sodium 135 mmol/L (135-145); eGFR > 60.00
[2025-09-09 05:18] LABS: Hematocrit 35.8 % (39.0-52.0); Hemoglobin 11.9 g/dL (13.0-18.0); Mean Corp Hgb Conc. 33.2 g/dL (33.0-37.0); Mean Corpuscular Volume 88.2 fL (80.0-94.0); Platelet Count 97 10^3/uL (130-400); Red Cell Dist. Width 13.2 % (11.5-14.5)
[2025-09-09] MEDS: TYLENOL 975 MG PO ×2 (05:19→13:53)
--- NOTE | 2025-09-09 07:42 | W.PN.INTV ---
Today's Communication / Plan
Recommendations
Wean oxygen
Out of bed
Monitor chest tube output
Dobutamine continues
Insulin drip per protocol
Assessment
-
69-year-old never smoking male with a history of hypertension, atrial fibrillation, osteoporosis, BPH, and significant mitral valve prolapse underwent mitral valve repair and line director consulted for postoperative ventilator/critical care
management 09/07/2025.
Mitral valve prolapse
Status post radical mitral valve repair/maze/LAMAGDIEL- Spencer 09/07/2025
Mild thrombocytopenia-platelet 128
Conditions present prior to admission:
Hypertension.
Mitral valve prolapse.
Atrial fibrillation/history of ablation and cardioversion.
BPH.
Osteopenia.
Tonsillectomy. Hernia repair. Pilonidal cyst.
Plan
Respiratory status slowly improving
Supplemental oxygen as needed-currently on 4 L mid flow
Hemodynamically stable
Incentive spirometry encouraged
Nebulizers if needed-currently not bronchospastic
Out of bed today
Pulmonary artery catheter parameters will be followed-Will likely continue today
Pressors/antihypertensive/inotropes/diuretics will be provided as needed-still on dobutamine
Monitor chest tube output
Monitor hemoglobin
Monitor platelet count and coags
Transfuse blood product if needed
CT surgery following chest tubes
Amiodarone and beta-cipriano on hold
Dobutamine drip continues
Follow-up echocardiogram
Monitor blood sugar
Insulin drip per protocol continues
Monitor postop hematuria
Aspiration precautions
VAP prevention protocol
DVT prophylaxis
Nutrition
Early mobilization-out of bed
Critical care statement: A total of 33 minutes of critical care time was provided for this patient today. This includes management of pressors/inotropes, of unstable vital signs, evaluation of the patient at bedside, reviewing the patient's
pertinent medical records including radiographs, inotrope, microbiology, laboratory evaluations, and discussion with primary team and critical care nursing.
Diagnostic data:
Chest x-ray 10/30/2023-small bilateral pleural effusions
CT chest abdomen and pelvis 08/30/2025-lungs are clear, mild dilation of ascending thoracic aorta measuring 3.8 cm, enlarged prostate gland, multilobulated solid mass within the left side of the pelvis adjacent to the prostate gland measuring 4.6
cm, consider yearly PSA or pelvic MRI, diffuse wall thickening suggesting cystitis or bladder outlet obstruction
Echocardiogram 08/01/2025-EF 62%, moderate to severe mitral valve regurgitation
Transesophageal echocardiogram 08/11/2025-EF 60-65%, prolapse of posterior leaflet with flail P2, P3 of segments
Cardiac catheterization 08/11/2025-trivial luminal irregularities, mildly elevated biventricular filling pressures, no aortic stenosis
Subjective Dataa
Subjective Data
Date of Service:
Date of Service: September 09, 2025
Chief Complaint: [employer] Curator Follow Up, Pulmonary Follow Up and Vent Management Follow Up
Subjective:
Feels better, mild shortness of breath, still on dobutamine, on pain controlled, no abdominal pain
Review of Systems
General: Other (Per HPI)
Objective Data
Data Reviewed
Vital Signs / I&O / Oxygen:
Vital Signs
Temp Pulse Resp BP Pulse Ox
99.6 F 70 25 147/73 96
09/09/25 07:00 09/09/25 07:00 09/09/25 07:00 09/09/25 07:00 09/09/25 07:00
Intake and Output
09/08/25 09/09/25 09/10/25
06:59 06:59 06:59
Intake Total 1665.0 / 1973.5 1330.3 / 1383.2 52.9 / 52.9
Output Total 1125 / 1145 1655 / 1685
Balance 540.0 / 828.5 -324.7 / -301.8 22.9 / 22.9
SaO2 [CPAP] 95
SaO2 [SIMV] 92
SaO2 96
Nasal Cannula flow liters per 6
minute
Physical Exam
General: Respiratory Distress and Comfortable
HEENT: Normocephalic, Anicteric and Moist Mucous Membranes
Cardiovascular: Regular Rhythm
Respiratory: Wheeze (n), Crackles (Few basilar), Rhonchi (n), Non-Labored Respirations, Accessory Resp Muscle Use (n), Stridor (n) and Chest Tube
GI: Soft, Non Distended and Non Tender
Neurology: Awake, Alert and No Motor Deficits
Skin: Warm, Good Color, Cyanosis (n) and Jaundice (n)
Labs/Micro/Reports
Lab Data
09/09/25 04:20
09/09/25 04:20
Laboratory Results
09/08/25
10:11
pH 7.43
pCO2 32 L
pO2 72 L
HCO3 21.2
O2 Delivery Level
--- NOTE | 2025-09-09 08:23 | PTCARENOTE ---
Addendum entered by Trena Perera RN 09/09/25 12:49:
Epicardial pacing wire tied to pacer box.
Original Note:
Patient received from operations supervisor 2nd shift resting in bed, AAO X 3, states pain controlled at this time. Mobitz type 1 noted via cm, SaO2 @ 97% on 4L midflow. RIJ Cordis/[place] catheter, L radial arterial lines present - leveled, flushed, and calibrated
w/good waveforms returned. Arterial line extremely positional. All procedural sites stable. Bassett catheter to gravity, blood tinged urine noted. Epicardial V-wire, insulated, pacer box at bedside. Patient updated to plan of care for the day, in
agreement. See work list for full assessment and interventions performed.
[2025-09-09] MEDS: LOW STRENGTH ASPIRIN 81 MG PO (09:17)
[2025-09-09] MEDS: PROTONIX 40 MG PO (09:17)
[2025-09-09] MEDS: NEURONTIN 100 MG PO ×3 (09:17→21:19)
[2025-09-09] MEDS: BACTROBAN 2% OINTMENT 1 APPLIC NASAL ×2 (09:18→20:10)
[2025-09-09] MEDS: SENOKOT 8.6 MG PO ×2 (09:18→20:01)
[2025-09-09] MEDS: NSS 500 IV (09:18)
[2025-09-09] MEDS: LIDOCAINE 4% PATCH TOPICAL (09:23)
[2025-09-09] MEDS: LASIX 40 MG IV (10:04)
--- NOTE | 2025-09-09 10:53 | W.PN.CD ---
Today's Communication / Plan
-
- Dobutamine gtt - wean off slowly.
- Diuresis today
Impression / Plan
-
69 y/o male (follows with Dr. Dos Santos) with AFIB with hx ablation (on Eliquis), PVC's, HFpEF, HTN, and MVP with progressive MR => severe mitral regurgitation who is now s/p MV repair.
MVP with severe mitral regurgitation:
-s/p right mini thoracotomy with radical mitral valve repair, cryoablation, left atrial maze and left atrial appendage exclusion, iatrogenic atrial septal defect closure from previous ablations, done primarily, Dr. Spencer 09/07/25
-On dobuta
-Doing well
AV Node disease
- Baseline 1st degree AV block
- Sinus with AV Wenckebach, Type I second degree heart block and some blocked PACs
- A few junctional escape beats are producing escape-capture pattern but no persistent heart block
- Anticipate AV conduction will improve
- Watch for need of cardiac pacing - no PPM indication yet.
HFpEF, preop was on eplerenone, Jardiance, Valsartan 40, Lasix
Persistent AF: ablation 2007 ([facility] -PVI), 01/07/2024 ([facility] PVI and PWI), and surgical 09/07/2025 (Spencer-Maze)
HTN
PVC's
Subjective: Feels well
Data:
Intraop PERICO 09/07/2025: Post-op: S/p MV-repair, s/o MR, no MS, mean MV 3. normal LV/RV fxn, s/p GINI exclusion, s/p PFO closure. Severe LAE, mild CHRIST,
PERICO 08/11/2025: pMVP with flail of P2/P3, severe eccentric anteriorly directed MR, LVEF 60-65%, normal RV
Cath 08/11/2025: RA 12, PA 52/15, PCWP 21, only luminal CAD, no
PERICO 02/17/2024: pMVP, mod eccentric MR, LVEF 55-60%
Redo PVI 01/07/2024 (Initial PVI at [facility] in 2007): RFA, PVI ([facility]), roof line, posterior wall. LA 9 mmHg
Physical Exam
Vital Signs/Labs
Vital Signs
Temp Pulse Resp BP Pulse Ox
100.7 F H 69 25 136/68 95
09/09/25 10:00 09/09/25 10:15 09/09/25 10:15 09/09/25 10:04 09/09/25 10:15
09/08/25 09/09/25 09/10/25
06:59 06:59 06:59
Actual Weight 97.3 kg 99.6 kg
09/09/25 04:20
09/09/25 04:20
PT 17.2 Sec (11.4-14.6) H 09/07/25 12:28
INR 1.35 09/07/25 12:28
APTT 30.3 Sec (23.4-35.0) 09/07/25 12:28
Magnesium 2.5 mg/dl (1.6-2.3) H 09/09/25 04:20
Physical Exam
Constitutional: No acute distress and Comfortable
EENT: Anicteric and Moist mucous membranes
Cardiovascular: Rhythm & rate is regular, Pedal edema present, JVD present and Systolic murmur present
Respiratory: Respiratory effort normal, Wheeze Absent and Crackles Absent
GI: Soft, Distention absent, Non tender and Normal bowel sounds
Neuro/Psych: Alert, Oriented and AO x 3
Other: Skin
Data Reviewed
-
Date of Service: September 09, 2025
Medical Decision Making: Reviewed Test Results, Test Interpretation and Review of Case with other Provider
EKG: Tracing Personally Visualized and interpreted
Echo: Report Reviewed by me
Medical Tests (PFT, Pathology etc): Discussed with Physician and Discussed with Patient
Labs: Labs Reviewed by me
Old Records: Reviewed
Critical Care Time (in minutes): 35
--- NOTE | 2025-09-09 12:15 | PTCARENOTE ---
VS obtained, stable. Patient remains oob in chair, resting comfortably, family at bedside. Lunch ordered. Incentive spirometry reviewed, patient demonstrated w/good technique.
[2025-09-09] MEDS: FERRLECIT 110 MG IV (13:53)
[2025-09-09] MEDS: DOBUTREX 250 IV (15:57)
--- NOTE | 2025-09-09 16:10 | PTCARENOTE ---
VS, hemodynamics remain stable. Patient states pain controlled. Family at bedside.
--- NOTE | 2025-09-09 20:00 | PTCARENOTE ---
Resumed care of the patient at 1900. Patient in bed, AOx3. Type 1 second degree HB on CM, good pulses, trace lower extremity edema, heart tones audible; epicardial V wire to backup rate of 40/14/0.8; wire tied to pacer box. Lungs dim at the bases on
2LNC. Abdomen SNT, no/n/v, BM today in prior shift. Bassett catheter draining clear sujit urine, improving in color. All surgical sites stable and intact. RIJ Cordis/cyndy @ 48, PIV x1, L radial art line; all applicable lines leveled, zeroed, and
flushed. On dobutamine. Call robert within reach, assessment of needs ongoing.
[2025-09-09] MEDS: ELIQUIS 5 MG PO (20:01)
[2025-09-09] MEDS: REMOVE LIDOCAINE PATCH REMOVE (20:10)
[2025-09-09] MEDS: OFIRMEV 100 IV (21:21)
[2025-09-09] MEDS: TYLENOL PO (21:24)
[2025-09-09 21:58] LABS: Urine Character Slightly Cloudy (Clear)
[2025-09-09 22:04] LABS: Urine Squamous Cell 0-2 /LPF (Few)
[2025-09-09 22:05] LABS: Urine Red Blood Cell >100 /HPF (0-2)
[2025-09-09] MEDS: MUCINEX 600 MG PO (22:53)
--- NOTE | 2025-09-09 23:26 | W.PN.CT ---
Addendum entered and electronically signed by Kvng Montilla MD 09/10/25 09:32:
I saw and examined the patient.
The PA's note was reviewed and I agree with the note.
Comment:
POD#3
No major overnight events. AF/flutter overnight in 50s. Tm 101.2
Dobutamine weaned OFF (MvO2 62.4)
- D/W EP - plan amiodarone 200mg PO daily - continue to hold BB
- Follow fevers, likely of little clinical significance in setting of decreasing WBC count. CXR improved significantly
- Continue Eliquis
- ECHO tomorrow per protocol
Original Note:
Today's Communication / Plan
-
Plan:
-No major issues overnight. Hemodynamically and neurologically intact
-On Dobutamine @ 1
-Last CI 2.47, MVO2 62.4 %
-Wean dobutamine gtt as tolerated
-D/C swan when off Dobutamine
-Holding BB/Amiodarone while on dobutamine with Karthikeyan Kang/Lori. Appears to now be in slow a-flutter
-EP monitoring HB
-Monitor postop hematuria, resolving. U/A negative for UTI. D/C grady catheter once off dobutamine
-Acute postop fevers (TM 102.4, WBC 14.5, down from 17.8 yesterday), u/a negative for UTI, likely d/t atelectasis
-Resumed Eliquis and stopped ASA. Currently on Eliquis and Plavix
-Will repeat echo tomorrow to reassess MV Repair
-Maintain cordis another day fo phlebotomy/medication administration
-Maintain temporary PW given ongoing HB
-Encourage use of IS
-OOB into chair/Ambulate/PT-OT to evaluate
Assessment / Plan
-
- s/p Right mini thoracotomy with Radical mitral valve Repair (Imbrication of P2 onto P3, cleft closure, neochordoplasty x 3 to posterior leaflet, Annuloplasty with 38mm Band); Cryoablation, left atrial maze and left atrial appendage exclusion with
a 35 mm clip; Iatrogenic atrial septal defect closure from previous ablations, done primarily by Dr. Spencer on 09/07/25, pod #3
- Intraop PERICO: LVEF preop was 60% with a dilated left ventricle. His cardiac index preoperatively under anesthesia with the [place] in place was 1.3 without inotropic support. Following surgery his EF did remain the same at 60% and his cardiac index
was significantly improved to 2.6 on 5 of Dobutrex. At the conclusion of the case, there was no residual mitral valve insufficiency, there is no systolic anterior motion of the mitral valve leaflets, and the mean gradient across the mitral valve was
3 mmHg.
- Degenerative mitral valve disease, severe regurgitation secondary to prolapse and flail of P2 and P3 [type II pathology]
- Acute on chronic congestive heart failure with severely depressed cardiac index at 1.3
- Chronic atrial fibrillation on anticoagulation (Eliquis)
- BPH
- Hypogonadism
- Osteopenia
- PVCs
- Hypertension
- Acute postop blood loss anemia
- Acute postop thrombocytopenia
- Acute postop atelectasis/pulmonary insufficiency
- Acute postop hypovolemia with subsequent hypervolemia
- Acute postop ventricular ectopy
- Suspected acute postop junctional rhythm (CHB off pump)
- Acute postop Wenckebach
- Acute postop hematuria
- Acute postop fevers, u/a negative for UTI, likely d/t atelectasis
Discussed patient care with: Cardiology, Nursing, Respiratory Therapy, Pharmacy and Care Team
Subjective
-
Date of Service: September 09, 2025
Pt c/o mild incisional pain, otherwise feels well
Objective Data
-
Lab Results
09/09/25 04:20
09/09/25 04:20
PT 17.2 Sec (11.4-14.6) H 09/07/25 12:28
INR 1.35 09/07/25 12:28
APTT 30.3 Sec (23.4-35.0) 09/07/25 12:28
Vital Signs
Vital Signs
Temp Pulse Resp BP Pulse Ox
99.6 F 53 22 143/65 97
09/09/25 23:00 09/09/25 23:15 09/09/25 23:15 09/09/25 23:00 09/09/25 23:15
CT Intake/Output/Weight
09/09/25 09/09/25 09/10/25
06:59 18:59 06:59
Intake Total 555.3 / 1383.2 1099.8 / 1496.8 397.0 / 1496.8
Output Total 540 / 1685 2235 / 2930 695 / 2930
Balance 15.3 / -301.8 -1135.2 / -1433.2 -298.0 / -1433.2
SaO2: 97 (2L)
Physical Exam
-
General: Awake, Oriented and AOx3
Cardiovascular: Regular rate & rhythm, No Murmurs, No Rub and No Gallop
Respiratory: Decreased Breath Sounds (at bases, otherwise clear)
Sternum: Stable
Incision: Clean, Dry, Intact and Dressing Intact
Extremities: Other (+trace edema)
Data Reviewed
-
Lab Results: Results Reviewed
Medications: Active Meds Reviewed
Chest X-Ray: Report Reviewed and Image Reviewed
ECG: Report Reviewed and Image Reviewed
[2025-09-10] VITALS (27 sets, daily range): BP systolic 120–155; BP diastolic 60–107; PULSE 62–64; O2SAT 96; BMI 30.7; BMI 30.8
--- NOTE | 2025-09-10 | PTCARENOTE ---
Pt given Ofirmev for temps. CO/CI/SVR out of range while shooting index. CVPA made aware. Advised to await AM to do another in conjunction with sending MVO2. Pt washed and repositioned in bed. VSS. Copious UOP, urine clearing up from previously; UA
with UC sent for analysis d/t being febrile.
--- NOTE | 2025-09-10 04:22 | PTCARENOTE ---
Sleeping between care, VSS, call robert within reach.
[2025-09-10] MEDS: TYLENOL 975 MG PO ×3 (05:21→21:02)
[2025-09-10 06:16] LABS: Hematocrit 37.4 % (39.0-52.0); Hemoglobin 12.4 g/dL (13.0-18.0); Mean Corp Hgb Conc. 33.2 g/dL (33.0-37.0); Mean Corpuscular Volume 89.7 fL (80.0-94.0); Platelet Count 97 10^3/uL (130-400); Red Cell Dist. Width 13.2 % (11.5-14.5)
[2025-09-10 06:20] LABS: Blood Urea Nitrogen 22 mg/dl (9-20); Calcium 8.4 mg/dl (8.4-10.2); Carbon Dioxide 27 mmol/L (22-30); Chloride 105 mmol/L (98-107); Estimated Creatinine Clearance > 125 ml/min; Glucose 103 mg/dl (70-99); Magnesium 2.2 mg/dl (1.6-2.3); Potassium 4.1 mmol/L (3.5-5.1); Sodium 135 mmol/L (135-145); eGFR > 60.00
--- NOTE | 2025-09-10 07:26 | W.PN.INTV ---
Today's Communication / Plan
Recommendations
Wean dobutamine
deline
Amiodarone orally
Eliquis continues
Monitor chest tube output
Likely transfer to telemetry-restaurant and bar manager will sign off
Assessment
-
69-year-old never smoking male with a history of hypertension, atrial fibrillation, osteoporosis, BPH, and significant mitral valve prolapse underwent mitral valve repair and restaurant and bar manager consulted for postoperative ventilator/critical care
management 09/07/2025.
Mitral valve prolapse
Status post radical mitral valve repair/maze/SELENE-Dr. Spencer 09/07/2025
Mild thrombocytopenia-platelet 128
Conditions present prior to admission:
Hypertension.
Mitral valve prolapse.
Atrial fibrillation/history of ablation and cardioversion.
BPH.
Osteopenia.
Tonsillectomy. Hernia repair. Pilonidal cyst.
Plan
Respiratory status continues to improve
Supplemental oxygen as needed-currently on 2 L nasal cannula down from mid flow
Hemodynamically stable
Incentive spirometry encouraged
Nebulizers if needed-currently not bronchospastic
Increase activity
Pulmonary artery catheter parameters will be followed-Will likely continue today
Pressors/antihypertensive/inotropes/diuretics will be provided as needed-still on dobutamine
Monitor chest tube output
Monitor hemoglobin
Monitor platelet count and coags
Transfuse blood product if needed
CT surgery following chest tubes
Amiodarone and beta-cipriano on hold-resume oral amiodarone 200 mg daily
Dobutamine drip wean
Continue Eliquis
Follow-up echocardiogram 09/11/2025
Monitor blood sugar
Insulin supplementation as needed
Monitor postop hematuria
Aspiration precautions
VAP prevention protocol
DVT prophylaxis
Nutrition
Increase activity
Patient likely will have dobutamine weaned and delined-likely transfer to telemetry-restaurant and bar manager will sign off
Reviewed the patient's pertinent medical records including radiographs, inotrope, microbiology, laboratory evaluations, and discussion with primary team and critical care nursing.
Diagnostic data:
Chest x-ray 10/30/2023-small bilateral pleural effusions
CT chest abdomen and pelvis 08/30/2025-lungs are clear, mild dilation of ascending thoracic aorta measuring 3.8 cm, enlarged prostate gland, multilobulated solid mass within the left side of the pelvis adjacent to the prostate gland measuring 4.6
cm, consider yearly PSA or pelvic MRI, diffuse wall thickening suggesting cystitis or bladder outlet obstruction
Echocardiogram 08/01/2025-EF 62%, moderate to severe mitral valve regurgitation
Transesophageal echocardiogram 08/11/2025-EF 60-65%, prolapse of posterior leaflet with flail P2, P3 of segments
Cardiac catheterization 08/11/2025-trivial luminal irregularities, mildly elevated biventricular filling pressures, no aortic stenosis
Subjective Dataa
Subjective Data
Date of Service:
Date of Service: September 10, 2025
Chief Complaint: Ramp Jockey Follow Up, Pulmonary Follow Up and Vent Management Follow Up
Subjective:
Doing well, out of bed, no complaints of shortness of breath, chest pain or abdominal pain, some asymptomatic a flutter
Review of Systems
General: Other (Per HPI)
Objective Data
Data Reviewed
Vital Signs / I&O / Oxygen:
Vital Signs
Temp Pulse Resp BP Pulse Ox
100.8 F H 59 22 135/74 97
09/10/25 06:00 09/10/25 06:15 09/10/25 06:15 09/10/25 06:00 09/10/25 06:15
Intake and Output
09/09/25 09/10/25 09/11/25
06:59 06:59 06:59
Intake Total 1330.3 / 1383.2 1776.6 / 1776.6
Output Total 1655 / 1685 4395 / 4395
Balance -324.7 / -301.8 -2618.4 / -2618.4
SaO2 [CPAP] 95
SaO2 [SIMV] 92
SaO2 97
Nasal Cannula flow liters per 2
minute
Physical Exam
General: Respiratory Distress and Comfortable
HEENT: Normocephalic, Anicteric and Moist Mucous Membranes
Cardiovascular: Regular Rhythm
Respiratory: Wheeze (n), Crackles (Few basilar), Rhonchi (n), Non-Labored Respirations, Accessory Resp Muscle Use (n), Stridor (n) and Chest Tube
GI: Soft, Non Distended and Non Tender
Neurology: Awake, Alert and No Motor Deficits
Skin: Warm, Good Color, Cyanosis (n) and Jaundice (n)
Labs/Micro/Reports
Lab Data
09/10/25 05:31
09/10/25 05:31
[2025-09-10] MEDS: NEURONTIN 100 MG PO ×3 (08:48→21:01)
[2025-09-10] MEDS: ELIQUIS 5 MG PO ×2 (08:48→21:01)
[2025-09-10] MEDS: BACTROBAN 2% OINTMENT 1 APPLIC NASAL ×2 (08:48→21:03)
[2025-09-10] MEDS: PROTONIX 40 MG PO (08:48)
[2025-09-10] MEDS: MUCINEX 600 MG PO ×2 (08:49→21:01)
[2025-09-10] MEDS: LIDOCAINE 4% PATCH TOPICAL (08:50)
[2025-09-10] MEDS: SENOKOT PO ×2 (08:51→21:02)
--- NOTE | 2025-09-10 08:53 | PTCARENOTE ---
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 Junctional rhythm via cm, Sao2 @ 97% on 2lnc. RIJ Cordis/[place]-Kita catheter - leveled, flushed, and calibrated w/good waveforms returned. Epicaridal
V-wire tied to pulse generator, set to back up rate 40bpm. Bassett catheter to gravity, sujit urine noted. All procedural sites stable. Patient assisted oob to commode, then chair - standing scale weight obtained. Patient updated to plan of care for
the day, in agreement. See work list for full assessment, interventions performed, and intravenous infusions and titrations.
[2025-09-10] MEDS: REFRESH EYE DROPS (PF) 1 DROPS OPHTH (09:17)
[2025-09-10] MEDS: FLOMAX 0.4 MG PO (09:47)
[2025-09-10] MEDS: PACERONE 200 MG PO (09:47)
[2025-09-10] MEDS: NSS IV (10:41)
--- NOTE | 2025-09-10 11:25 | W.PN.CD ---
Today's Communication / Plan
-
- Start amiodarone 200 mg once a day.
- Expected recovery of AV conduction.
Impression / Plan
-
69 y/o male (follows with Dr. Dos Santos) with AFIB with hx ablation (on Eliquis), PVC's, HFpEF, HTN, and MVP with progressive MR => severe mitral regurgitation who is now s/p MV repair.
MVP with severe mitral regurgitation:
-s/p right mini thoracotomy with radical mitral valve repair, cryoablation, left atrial maze and left atrial appendage exclusion, iatrogenic atrial septal defect closure from previous ablations, done primarily, Dr. Spencer 09/07/25
-On dobuta
-Doing well
AV Node disease
- Baseline 1st degree AV block
- Baseline atrial fibrillation with junctional escape rhythm
- Anticipate AV conduction will improve
- Will start amiodarone for baseline A-fib.
- Watch for need of cardiac pacing - no PPM indication yet.
HFpEF, preop was on eplerenone, Jardiance, Valsartan 40, Lasix
Persistent AF: ablation 2007 ([facility] -PVI), 01/07/2024 (Jean-Redo PVI and PWI), and surgical 09/07/2025 (Spencer-Maze)
HTN
PVC's
Subjective: Feels well
Data:
Intraop PERICO 09/07/2025: Post-op: S/p MV-repair, s/o MR, no MS, mean MV 3. normal LV/RV fxn, s/p GINI exclusion, s/p PFO closure. Severe LAE, mild CHRIST,
PERICO 08/11/2025: pMVP with flail of P2/P3, severe eccentric anteriorly directed MR, LVEF 60-65%, normal RV
Cath 08/11/2025: RA 12, PA 52/15, PCWP 21, only luminal CAD, no
PERICO 02/17/2024: pMVP, mod eccentric MR, LVEF 55-60%
Redo PVI 01/07/2024 (Initial PVI at [facility] in 2007): RFA, PVI ([facility]), roof line, posterior wall. LA 9 mmHg
Physical Exam
Vital Signs/Labs
Vital Signs
Temp Pulse Resp BP Pulse Ox
100.6 F H 59 25 138/77 96
09/10/25 10:00 09/10/25 11:00 09/10/25 11:00 09/10/25 11:00 09/10/25 10:00
09/09/25 09/10/25 09/11/25
06:59 06:59 06:59
Actual Weight 99.6 kg 97.1 kg 97.3 kg
09/10/25 05:31
09/10/25 05:31
PT 17.2 Sec (11.4-14.6) H 09/07/25 12:28
INR 1.35 09/07/25 12:28
APTT 30.3 Sec (23.4-35.0) 09/07/25 12:28
Magnesium 2.2 mg/dl (1.6-2.3) 09/10/25 05:31
Physical Exam
Constitutional: No acute distress and Comfortable
EENT: Anicteric and Moist mucous membranes
Cardiovascular: Rhythm & rate is regular, Pedal edema is absent and JVD pressure is normal
Respiratory: Respiratory effort normal and Wheeze Absent
GI: Soft, Non tender and Normal bowel sounds
Neuro/Psych: Alert, Oriented and AO x 3
Data Reviewed
-
Date of Service: September 10, 2025
Medical Decision Making: Reviewed Test Results, Test Interpretation and Review of Case with other Provider
EKG: Tracing Personally Visualized and interpreted
Echo: Report Reviewed by me
Labs: Labs Reviewed by me
Old Records: Reviewed
Critical Care Time (in minutes): 32
--- NOTE | 2025-09-10 11:46 | PTCARENOTE ---
Patient worked w/PT, tolerated well. Assisted back to bed, [place], grady catheter d/c'd. Patient resting comfortably.
[2025-09-10] MEDS: FERRLECIT 110 MG IV (14:05)
--- NOTE | 2025-09-10 19:00 | PTCARENOTE ---
assumed care of patient @ 1900. received pt laying in bed
Neuro- Aox3. GAY AMAYA. mild c/o pain 2/10 in surgical incisions\\
CV- Afib vs junctional in the 50s.+ pulses, trace edema. V wire set to 40,14,.8.
Lugs- Clear on room air satting mid 90s. Ocasional non productive cough.
GI- +BM today. good appetite, good bowel sounds.
- voiding clear sujit urine in urinal
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 R groin glued HUAN.
Lines- R IJ cordis, R wrist piv both patent
Pt resting comfortably in bed with call robert within reach .
[2025-09-10] MEDS: REMOVE LIDOCAINE PATCH REMOVE (21:02)
[2025-09-11] VITALS (12 sets, daily range): BP systolic 116–167; BP diastolic 61–75; PULSE 56–59; O2SAT 94–96; BMI 30.4
--- NOTE | 2025-09-11 00:29 | W.PN.CT ---
Today's Communication / Plan
-
Plan:
-No major issues overnight. Hemodynamically and neurologically intact
-Wean off Dobutamine yesterday 09/10/25 and transferred to tele phase
-[place] and a-line d/c'd
-Resumed Amiodarone @ 200 mg Qdaily yesterday 09/10 per Cardiology. BB remains on hold
-Postop Mobitz type 1, now a-fib a-flutter (50's). EP following
-Cont. Eliquis
-Will repeat echo today to reassess, MV Repair
-Postop hematuria has resolved
-Postop fever resolved, U/A negative, likely d/t atelectasis
-D/C cordis
-Will cut temporary PW before D/C home
-Monitor hyponatremia, 133. Fluid restriction, cont. diuresis
-Will replete K, 3.7
-Encourage use of IS
-OOB into chair/Ambulate/PT-OT following
-D/C in 1-2 days
Assessment / Plan
-
- s/p Right mini thoracotomy with Radical mitral valve Repair (Imbrication of P2 onto P3, cleft closure, neochordoplasty x 3 to posterior leaflet, Annuloplasty with 38mm Band); Cryoablation, left atrial maze and left atrial appendage exclusion with
a 35 mm clip; Iatrogenic atrial septal defect closure from previous ablations, done primarily by Dr. Spencer on 09/07/25, pod #4
- Intraop PERICO: LVEF preop was 60% with a dilated left ventricle. His cardiac index preoperatively under anesthesia with the [place] in place was 1.3 without inotropic support. Following surgery his EF did remain the same at 60% and his cardiac index
was significantly improved to 2.6 on 5 of Dobutrex. At the conclusion of the case, there was no residual mitral valve insufficiency, there is no systolic anterior motion of the mitral valve leaflets, and the mean gradient across the mitral valve was
3 mmHg.
- Degenerative mitral valve disease, severe regurgitation secondary to prolapse and flail of P2 and P3 [type II pathology]
- Acute on chronic congestive heart failure with severely depressed cardiac index at 1.3
- Chronic atrial fibrillation on anticoagulation (Eliquis)
- BPH
- Hypogonadism
- Osteopenia
- PVCs
- Hypertension
- Acute postop blood loss anemia
- Acute postop thrombocytopenia
- Acute postop atelectasis/pulmonary insufficiency
- Acute postop hypovolemia with subsequent hypervolemia
- Acute postop ventricular ectopy
- Suspected acute postop junctional rhythm (CHB off pump)
- Acute postop Wenckebach
- Acute postop hematuria
- Acute postop fevers, u/a negative for UTI, likely d/t atelectasis
- Acute postop a-fib/flutter (rate controlled)
- Acute postop hyponatremia, 133
- Acute postop hypokalemia
Discussed patient care with: Cardiology, Nursing, Respiratory Therapy, Pharmacy and Care Team
Subjective
-
Date of Service: September 11, 2025
Pt c/o mild incisional pain, otherwise feels well
Objective Data
-
PT 17.2 Sec (11.4-14.6) H 09/07/25 12:28
INR 1.35 09/07/25 12:28
APTT 30.3 Sec (23.4-35.0) 09/07/25 12:28
Vital Signs
Vital Signs
Temp Pulse Resp BP Pulse Ox
99.3 F 51 16 130/60 94
09/11/25 00:00 09/11/25 00:00 09/11/25 00:00 09/10/25 23:51 09/11/25 00:00
CT Intake/Output/Weight
09/10/25 09/10/25 09/11/25
06:59 18:59 06:59
Intake Total 676.8 / 1798.0 611.4 / 1151.4 540 / 1151.4
Output Total 2160 / 4455 365 / 865 500 / 865
Balance -1483.2 / -2657.0 246.4 / 286.4 40 / 286.4
SaO2: 94 (RA)
Physical Exam
-
General: Awake, Oriented and AOx3
Cardiovascular: Regular rate & rhythm (a-flutter), No Murmurs, No Rub and No Gallop
Respiratory: Decreased Breath Sounds (at bases, otherwise clear)
Sternum: Stable
Incision: Clean, Dry, Intact and Dressing Intact
Extremities: Other (+trace edema)
Data Reviewed
-
Lab Results: Results Reviewed
Medications: Active Meds Reviewed
Chest X-Ray: Report Reviewed and Image Reviewed
ECG: Report Reviewed and Image Reviewed
[2025-09-11 03:15] LABS: Hematocrit 36.9 % (39.0-52.0); Hemoglobin 12.1 g/dL (13.0-18.0); Mean Corp Hgb Conc. 32.8 g/dL (33.0-37.0); Mean Corpuscular Volume 89.8 fL (80.0-94.0); Platelet Count 126 10^3/uL (130-400); Red Cell Dist. Width 13.1 % (11.5-14.5)
[2025-09-11 03:35] LABS: Blood Urea Nitrogen 18 mg/dl (9-20); Calcium 8.4 mg/dl (8.4-10.2); Carbon Dioxide 24 mmol/L (22-30); Chloride 106 mmol/L (98-107); Estimated Creatinine Clearance > 125 ml/min; Glucose 99 mg/dl (70-99); Magnesium 2.1 mg/dl (1.6-2.3); Potassium 3.7 mmol/L (3.5-5.1); Sodium 133 mmol/L (135-145); eGFR > 60.00
[2025-09-11] MEDS: KCL 40 MEQ PO (06:28)
[2025-09-11] MEDS: TYLENOL 975 MG PO ×3 (06:29→21:31)
[2025-09-11] MEDS: PROTONIX 40 MG PO (08:11)
[2025-09-11] MEDS: MUCINEX 600 MG PO ×2 (08:12→19:55)
[2025-09-11] MEDS: NEURONTIN 100 MG PO ×2 (08:12→21:31)
[2025-09-11] MEDS: FLOMAX 0.4 MG PO (08:12)
[2025-09-11] MEDS: PACERONE 200 MG PO (08:12)
[2025-09-11] MEDS: ELIQUIS 5 MG PO ×2 (08:12→19:55)
[2025-09-11] MEDS: LIDOCAINE 4% PATCH 1 PATCH TOPICAL (08:12)
[2025-09-11] MEDS: PROSCAR 5 MG PO (08:12)
[2025-09-11] MEDS: BACTROBAN 2% OINTMENT 1 APPLIC NASAL (08:13)
[2025-09-11] MEDS: SENOKOT PO ×2 (08:13→19:55)
--- NOTE | 2025-09-11 08:26 | PTCARENOTE ---
Received pt from gunner's mate RN; pt AAOx3 and resting comfortably in chair; A-flutter on monitor and VSS; Epicardial V wires set to VVI 40/14/0.8 and no pacing noted; positive bowel sounds; pt voiding sujit urine; palpable pulses throughout; trace
lower extremity edema noted; all surgical sites C/D/I; see nursing documentation for further details.
[2025-09-11] MEDS: LASIX 40 MG IV (09:51)
--- NOTE | 2025-09-11 10:18 | CM ---
Reviewed chart. Met with Mr. Zazueta to review discharge plans. He stares he is feeling well and maybe able to go home soon. We reviewed a home visit by the Transitional Care Nurse. He is agreeable to a home visit. He states his spouse and
kewuhn-ov-ieo will be home to assist in his care if needed. Prior to admission he resides with his spouse in a one story home with two steps to enter, He resides in a [facility] plus nursing home community, [facility]. They have been there for
thirteen years. Prior to admission he was ambulating with a single point cane because he was SOB. He has a walker and single point cane at home. He has prescription plan. Medical work-up in progress. The discharge plan is to return home with his
spouse , rewteg-os-sby and a home visit by the Transitional Care Nurse when medically stable.
--- NOTE | 2025-09-11 10:53 | W.PN.CD ---
Today's Communication / Plan
-
- Back in AFib
- If in AFib in 1 month will plan to cardiovert
- Anticipate no more than 3 months of amiodarone
Impression / Plan
-
69 y/o male (follows with Dr. Dos Santos) with AFIB with hx ablation (on Eliquis), PVC's, HFpEF, HTN, and MVP with progressive MR => severe mitral regurgitation who is now s/p MV repair.
MVP with severe mitral regurgitation:
-s/p right mini thoracotomy with radical mitral valve repair, cryoablation, left atrial maze and left atrial appendage exclusion, iatrogenic atrial septal defect closure from previous ablations, done primarily, Dr. Spencer 09/07/25
-On dobuta
-Doing well
AV Node disease
- Baseline 1st degree AV block
- Baseline atrial fibrillation with junctional escape rhythm
- Anticipate AV conduction will improve
- Will start amiodarone for baseline A-fib.
- Watch for need of cardiac pacing - no PPM indication yet.
HFpEF, preop was on eplerenone, Jardiance, Valsartan 40, Lasix
Persistent AF: ablation 2007 ([facility] -PVI), 01/07/2024 (Jean-Redo PVI and PWI), and surgical 09/07/2025 (Spencer-Maze)
- Back in AFib
- If in AFib in 1 month will plan to cardiovert
- Anticipate no more than 3 months of amiodarone
HTN
PVC's
Subjective: Feels well
Data:
Intraop PERICO 09/07/2025: Post-op: S/p MV-repair, s/o MR, no MS, mean MV 3. normal LV/RV fxn, s/p GINI exclusion, s/p PFO closure. Severe LAE, mild CHRIST,
PERICO 08/11/2025: pMVP with flail of P2/P3, severe eccentric anteriorly directed MR, LVEF 60-65%, normal RV
Cath 08/11/2025: RA 12, PA 52/15, PCWP 21, only luminal CAD, no
PERICO 02/17/2024: pMVP, mod eccentric MR, LVEF 55-60%
Redo PVI 01/07/2024 (Initial PVI at [facility] in 2007): RFA, PVI ([facility]), roof line, posterior wall. LA 9 mmHg
Physical Exam
Vital Signs/Labs
Vital Signs
Temp Pulse Resp BP Pulse Ox
98.3 F 53 20 116/70 96
09/11/25 08:00 09/11/25 08:15 09/11/25 08:00 09/11/25 07:19 09/11/25 08:46
09/10/25 09/11/25 09/12/25
06:59 06:59 06:59
Actual Weight 97.1 kg 96.2 kg
09/11/25 02:31
09/11/25 02:31
PT 17.2 Sec (11.4-14.6) H 09/07/25 12:28
INR 1.35 09/07/25 12:28
APTT 30.3 Sec (23.4-35.0) 09/07/25 12:28
Magnesium 2.1 mg/dl (1.6-2.3) 09/11/25 02:31
Physical Exam
Constitutional: No acute distress
EENT: Anicteric
Cardiovascular: Rhythm/rate is irregular and Rub absent
Respiratory: Respiratory effort normal and Lungs clear to auscul. (decrease left base)
GI: Soft and Distention absent
Neuro/Psych: AO x 3
Data Reviewed
-
Date of Service: September 11, 2025
--- NOTE | 2025-09-11 11:38 | PTCARENOTE ---
Assessment unchanged; A-fib on monitor and VSS; pt resting comfortably in chair; ambulating room with rolling walker with RN.
[2025-09-11] MEDS: NEURONTIN PO (15:30)
[2025-09-11] MEDS: NSS IV (15:31)
[2025-09-11] MEDS: REMOVE LIDOCAINE PATCH 1 PATCH REMOVE (19:55)
--- NOTE | 2025-09-11 20:30 | PTCARENOTE ---
Assumed care of pt from dayshift RN. Walking rounds completed. Pt AAOx3. AMAYA. Appropriate. A-flutter on the tele monitor. HR 50s. V-wire intact, set to 40/14/0.8. BP stable. Palpable pulses throughout. Trace b/l LE edema. Pt on RA. POX 97%.
Occasional cough. Deep breathing and IS encouraged. Abdomen soft. +BSx4. Pt w/ loose stools. Voiding w/o issue. All surgical sites stable. PIVx1 intact. See worklist for full nursing assessment and interventions. Pt denies pain at this time. Call
robert within reach.
[2025-09-11] MEDS: KCL 20 MEQ PO (21:57)
[2025-09-12] VITALS (12 sets, daily range): BP systolic 115–162; BP diastolic 67–81; PULSE 55–57; O2SAT 94–95; BMI 30.2
--- NOTE | 2025-09-12 00:53 | PTCARENOTE ---
No change in assessment. Pt a-flutter vs junctional on tele. HR high 40s-50s. BP stable. POX 94% on RA. All surgical sites stable. Call robert within reach.
--- NOTE | 2025-09-12 01:57 | W.PN.CT ---
Today's Communication / Plan
-
Plan:
-No major issues overnight. Hemodynamically and neurologically intact
-Wean off Dobutamine on 09/10/25 and transferred to [facility] phase
-Resumed Amiodarone @ 200 mg Qdaily on 09/10 per Cardiology. BB remains on hold
-Postop Mobitz type 1, now a-fib/a-flutter (50's). EP following, possible DCCV as an outpt
-Cont. Eliquis
-Repeat echo yesterday 09/11 showed an intact MV repair, no MR, LVEF 60-65%
-F/U 2-view cxr today
-Postop hematuria has resolved
-Postop fever has resolved, U/A negative, likely d/t atelectasis
-Will cut temporary PW before D/C home
-Monitor hyponatremia, 133->134. Fluid restriction, cont. diuresis
-Thrombocytopenia has resolved, 97->126->160
-Encourage use of IS
-OOB into chair/Ambulate/PT-OT following
-D/C home today
Assessment / Plan
-
- s/p Right mini thoracotomy with Radical mitral valve Repair (Imbrication of P2 onto P3, cleft closure, neochordoplasty x 3 to posterior leaflet, Annuloplasty with 38mm Band); Cryoablation, left atrial maze and left atrial appendage exclusion with
a 35 mm clip; Iatrogenic atrial septal defect closure from previous ablations, done primarily by Dr. Spencer on 09/07/25, pod #5
- Intraop PERICO: LVEF preop was 60% with a dilated left ventricle. His cardiac index preoperatively under anesthesia with the [place] in place was 1.3 without inotropic support. Following surgery his EF did remain the same at 60% and his cardiac index
was significantly improved to 2.6 on 5 of Dobutrex. At the conclusion of the case, there was no residual mitral valve insufficiency, there is no systolic anterior motion of the mitral valve leaflets, and the mean gradient across the mitral valve was
3 mmHg.
- Degenerative mitral valve disease, severe regurgitation secondary to prolapse and flail of P2 and P3 [type II pathology]
- Acute on chronic congestive heart failure with severely depressed cardiac index at 1.3
- Chronic atrial fibrillation on anticoagulation (Eliquis)
- BPH
- Hypogonadism
- Osteopenia
- PVCs
- Hypertension
- Acute postop blood loss anemia
- Acute postop thrombocytopenia
- Acute postop atelectasis/pulmonary insufficiency
- Acute postop hypovolemia with subsequent hypervolemia
- Acute postop ventricular ectopy
- Suspected acute postop junctional rhythm (CHB off pump)
- Acute postop Wenckebach
- Acute postop hematuria
- Acute postop fevers, u/a negative for UTI, likely d/t atelectasis
- Acute postop a-fib/flutter (rate controlled)
- Acute postop hyponatremia, 133
- Acute postop hypokalemia
Discussed patient care with: Cardiology, Nursing, Respiratory Therapy, Pharmacy and Care Team
Subjective
-
Date of Service: September 12, 2025
Pt c/o mild incisional pain, otherwise feels well. Ambulating halls without difficulty
Objective Data
-
Lab Results
09/11/25 02:31
PT 17.2 Sec (11.4-14.6) H 09/07/25 12:28
INR 1.35 09/07/25 12:28
APTT 30.3 Sec (23.4-35.0) 09/07/25 12:28
Vital Signs
Vital Signs
Temp Pulse Resp BP Pulse Ox
98.3 F 48 20 115/67 94
09/12/25 00:45 09/12/25 00:45 09/12/25 00:45 09/12/25 00:45 09/12/25 00:45
CT Intake/Output/Weight
09/11/25 09/11/25 09/12/25
06:59 18:59 06:59
Intake Total 580 / 1191.4 480 / 480
Output Total 500 / 865 975 / 975
Balance 80 / 326.4 -495 / -495
SaO2: 94 (RA)
Physical Exam
-
General: Awake, Oriented and AOx3
Cardiovascular: Regular rate & rhythm (a-flutter in 50's), No Murmurs, No Rub and No Gallop
Respiratory: Decreased Breath Sounds (at bases, otherwise clear)
Sternum: Stable
Incision: Clean, Dry, Intact and Dressing Intact
Extremities: Other (+trace edema)
Data Reviewed
-
Lab Results: Results Reviewed
Medications: Active Meds Reviewed
Chest X-Ray: Report Reviewed and Image Reviewed
ECG: Report Reviewed and Image Reviewed
--- NOTE | 2025-09-12 04:31 | PTCARENOTE ---
No acute change in assessment. A-fib/junctional/a-flutter on tele. HR 50s. BP stable. 94% on RA. Labs sent. EKG obtained. Pt assisted OOB to the bathroom to void. + Loose BM. Pt then assisted to the chair. Call robert within reach.
[2025-09-12 04:39] LABS: Blood Urea Nitrogen 18 mg/dl (9-20); Calcium 9.0 mg/dl (8.4-10.2); Carbon Dioxide 28 mmol/L (22-30); Chloride 104 mmol/L (98-107); Estimated Creatinine Clearance 98 ml/min; Glucose 106 mg/dl (70-99); Magnesium 2.1 mg/dl (1.6-2.3); Potassium 4.0 mmol/L (3.5-5.1); Sodium 134 mmol/L (135-145); eGFR > 60.00
[2025-09-12 05:04] LABS: Hematocrit 41.3 % (39.0-52.0); Hemoglobin 13.2 g/dL (13.0-18.0); Mean Corp Hgb Conc. 32.0 g/dL (33.0-37.0); Mean Corpuscular Volume 91.2 fL (80.0-94.0); Platelet Count 160 10^3/uL (130-400); Red Cell Dist. Width 13.2 % (11.5-14.5)
[2025-09-12] MEDS: TYLENOL 975 MG PO ×2 (05:51→13:25)
--- NOTE | 2025-09-12 08:00 | PTCARENOTE ---
AFIB on monitor HR 50s. pulses palabletrace edema. 96% RA. lungs diminished but clear. occasional dry cough. +appetite. loose stools noted. BRP. assist x1 with walker. PIV patent. surgical sites stable. for hopeful d/c later today? will contibnue to
monitor.
[2025-09-12] MEDS: INSPRA 25 MG PO (09:21)
[2025-09-12] MEDS: PROTONIX 40 MG PO (09:22)
[2025-09-12] MEDS: NEURONTIN 100 MG PO (09:22)
[2025-09-12] MEDS: FLOMAX 0.4 MG PO (09:22)
[2025-09-12] MEDS: PROSCAR 5 MG PO (09:22)
[2025-09-12] MEDS: MUCINEX 600 MG PO (09:22)
[2025-09-12] MEDS: ELIQUIS 5 MG PO (09:22)
[2025-09-12] MEDS: LIDOCAINE 4% PATCH TOPICAL (09:23)
[2025-09-12] MEDS: SENOKOT PO (09:23)
[2025-09-12] MEDS: NSS IV (09:23)
[2025-09-12] MEDS: FARXIGA 10 MG PO (09:45)
[2025-09-12] MEDS: LASIX 40 MG PO (09:45)
[2025-09-12] MEDS: PACERONE PO (09:52)
--- NOTE | 2025-09-12 10:18 | CM ---
Reviewed chart. Met with Mr. Zazueta to review discharge plans. He states he is feeling well and maybe able to go home soon. He states his neighbor is lending him a rollator to use at home. He has a easy lift recliner , walker and single point cane
and a shower chair at home. His executive director of marketing is coming on to instal at [facility] in this main bathroom. We reviewed a home visit by the Transitional Care Nurse. He is agreeable to a home visit. His spouse and ouvhme-ei-ohi will be home to
assist in his care if needed. Prior to admission he resides with his spouse in a one story home with two steps to enter, He resides in a [facility] detention community, [facility]. They have been there for thirteen years. Prior to admission he
was ambulating with a single point cane because he was SOB. He has prescription plan. Medical work-up in progress. The discharge plan is to return home with his spouse , [id number] and a home visit by the Transitional Care Nurse when medically
stable.
--- NOTE | 2025-09-12 11:04 | W.PN.CD ---
Today's Communication / Plan
-
decrease Amio to 200 mg M/W/F. Hope to stop Amio within 6-24 weeks.
Continue fpc anticoagulation for now.
(Note: GINI was treated with clip, if we are to treat like watchman than I would favor PERICO to assure good result at the 45 day to 4 month range and perhaps again at the 1 year fredy-- but for now I prefer to continue anticoagulation fpc if he
tolerates anticoagulation.
Add back SGLT2-I and MRA
Continue Lasix
Will plan Cardioversion if AFib persist at the 4-6 week fredy
Impression / Plan
-
69 y/o male (follows with Dr. Dos Santos) with AFIB with hx ablation (on Eliquis), PVC's, HFpEF, HTN, and MVP with progressive MR => severe mitral regurgitation who is now s/p MV repair.
MVP with severe mitral regurgitation:
-s/p right mini thoracotomy with radical mitral valve repair, cryoablation, left atrial maze and left atrial appendage exclusion, iatrogenic atrial septal defect closure from previous ablations, done primarily, Dr. Spencer 09/07/25
-On dobuta
-Doing well
AV Node disease
- Baseline 1st degree AV block
- Baseline atrial fibrillation with junctional escape rhythm
- Anticipate AV conduction will improve
- Will start amiodarone for baseline A-fib.
- Watch for need of cardiac pacing - no PPM indication yet.
HFpEF, preop was on eplerenone, Jardiance, Valsartan 40, Lasix
Persistent AF: ablation 2007 ([facility] -PVI), 01/07/2024 (Jean-Redo PVI and PWI), and surgical 09/07/2025 (Spencer-Maze)
- Back in AFib
- If in AFib in 1 month will plan to cardiovert
- Anticipate no more than 3 months of amiodarone
HTN
PVC's
Subjective: Feels well
Data:
Intraop PERICO 09/07/2025: Post-op: S/p MV-repair, s/o MR, no MS, mean MV 3. normal LV/RV fxn, s/p GINI exclusion, s/p PFO closure. Severe LAE, mild CHRIST,
PERICO 08/11/2025: pMVP with flail of P2/P3, severe eccentric anteriorly directed MR, LVEF 60-65%, normal RV
Cath 08/11/2025: RA 12, PA 52/15, PCWP 21, only luminal CAD, no
PERICO 02/17/2024: pMVP, mod eccentric MR, LVEF 55-60%
Redo PVI 01/07/2024 (Initial PVI at [facility] in 2007): RFA, PVI ([facility]), roof line, posterior wall. LA 9 mmHg
Physical Exam
Vital Signs/Labs
Vital Signs
Temp Pulse Resp BP Pulse Ox
98.5 F 59 16 130/81 94
09/12/25 03:55 09/12/25 09:15 09/12/25 03:55 09/12/25 08:54 09/12/25 03:55
09/11/25 09/12/25 09/13/25
06:59 06:59 06:59
Actual Weight 96.2 kg 95.5 kg
09/12/25 04:03
09/12/25 04:03
PT 17.2 Sec (11.4-14.6) H 09/07/25 12:28
INR 1.35 09/07/25 12:28
APTT 30.3 Sec (23.4-35.0) 09/07/25 12:28
Magnesium 2.1 mg/dl (1.6-2.3) 09/12/25 04:03
Physical Exam
Constitutional: No acute distress
Cardiovascular: Rhythm/rate is irregular and Rub absent
Respiratory: Respiratory effort normal and Lungs clear to auscul.
GI: Soft and Distention absent
Neuro/Psych: AO x 3 and Motor deficits absent
Data Reviewed
-
Date of Service: September 12, 2025
--- NOTE | 2025-09-12 15:01 | W.DCSUMMARY ---
Discharge Summary
Discharge Data
Date of Admission: 09/07/25
Date of Discharge: 09/12/25
-
Pending Results: No
Hospital Course
Primary care physician: Dr. Jeremy Kramer
Outpatient soaking room operator: Dr. Joseph Dos Santos
Inpatient consultants: [facility],
Procedures:
1. Mini-thoracotomy with Radial Mitral Valve Repair (#38 mm band), MAZE, eLAA (# 35 mm), and iatrogenic ASD closure from prior ablations on 09/07/[address] Dane Spencer
Primary Diagnosis:
1. Mitral Valve Prolapse
Secondary Diagnoses:
1. Atrial Fibrillation s/p PVI (2007)
2. HTN
3. BPH
4. LLE Varicose Veins
5. Ventral, Umbilical, Inguinal Hernia Repair
6. Hypogonadism
7. Osteopenia
HPI: Mr. Zazueta is a 69-year-old male with a known PMHx of mitral regurgitation and AF who presented for elective MVR, MAZE, and GINI clip on 09/07/[address] Dane Spencer. Please refer to pre-operative H&P for complete presentation prior to
surgery.
Hospital course: Patient was electively admitted on 09/07/25 and underwent mini-thoracotomy with Radial Mitral Valve Repair (#38 mm band), MAZE, eLAA (# 35 mm), and iatrogenic ASD closure from prior ablations with Dr. Dane Spencer. Please refer to
surgeons postoperative report for complete details regarding surgery. Intraoperative PERICO showed MV repair with 38 mm mitral band and 3 romelia-cord's, no residual MR, no MS, and normal functioning leaflets without perivalvular leak, with MG 3 mmHg,
normal LV size/function, exclusion of GINI, and no shunting across intraarterial septum following PFO closure. In progressive fashion, central lines, chest tubes, and epicardial pacing wires were removed. patient was weaned from dobutamine infusion
on 09/10/25. Postoperative course was complicated by postop Mobitz Type 1 to A-fib/A-flutter with a rate in 50's, Cardiology and Electrophysiology followed in which beta-cipriano was held. Patient was discharged home on Amiodarone 200 mg , , Thu
with hope to stop within 6-24 weeks, continuation of DOAC, and plan for consideration of cardioversion if A-fib persists at 4-6 weeks postoperatively. Patient further endured post-op hematuria which resolved without intervention; post-op fever
suspected to be secondary to atelectasis, UA was negative. Patient had thrombocytopenia which resolved with platelets of 160K upon discharge. On post operative day 5, patient was tolerating physical activity, medication regiment, and was deemed
stable for discharge. Prior to discharge, a repeat TTE reported normal LV systolic function, enlarged RV with normal systolic function, repaired MV with MG 2 mmHg and no MR, and no pericardial effusion. He had a 2-view CXR which showed small
bilateral pleural effusions and mild bibasilar atelectasis. He was continued on Lasix 40 mg per day with addition of Potassium Chloride of 20 mEq per day while Valsartan remains on home. Patient was advised to continue to monitor his weight at home
and monitor his fluid intake. He will follow-up with Dr. Spencer in 4-weeks from surgery. He was scheduled to follow-up with his primary soaking room operator within the next few weeks. He will be seen with the Transitional Care Nursing team within the next 1-2
days following discharge.
Home medication changes:
- See list provided below
Discharge Plan
-
Patient Disposition: Home (Routine Discharge)
Discharge Diagnosis/Procedures: Mitral Valve Prolapse s/p Right mini-thoracotomy with Mitral Valve Repair, MAZE, Left Atrial Appendage Clip, and Iatrogenic Atrial Septal Defect Closure on 09/07/[address] Dane Spencer
Condition: Good
Diet: No restrictions
Activity: No strenuous activity
Additional Activity: No heavy lifting, pushing, or pulling anything greater than 10 lbs for 1 week.
Driving Restrictions: Not until seen by your Dr
Bathing Restrictions: OK to Shower
Other Services: Cardiac Rehab
Specialty Instructions: Weigh Daily- Call MD for wt gain/loss 3 lbs overnight/5 lbs in 1 week
Activity Restrictions/Additional Instructions:
ACTIVITY:
-No strenuous activity: no heavy lifting, pushing, pulling anything over 15 pounds for one week
-continue to use stairs as tolerated
DRIVING RESTRICTIONS:
-No driving for one month or until approved by your surgeon
WOUND CARE:
-Shower daily. Use soap & water.
-No lotions, creams or powders on incision area.
CARDIAC REHAB:
-Please make appointment to start in 5-6 weeks with your local hospital program. (See Cardiac Rehabilitation Discharge Booklet).
SPECIALTY INSTRUCTIONS:
-Weigh yourself daily. Call your physician for any weight gain/loss of 3 lbs overnight or 5 lbs in one week.
-If you smoke, you are instructed to quit. The [facility] smoking hotline phone number is [phone]
Referrals:
CT Transitional Care Nurse [Outside] - in one to two days
Referral Note:
The Cardiothoracic Transitional Care Nurse will call you to set up a visit in 1-2 days.
Jeremy Kramer MD [Family Provider, Family Practice] - in four to six weeks
Referral Note: Please make an appointment in four to six weeks.
Em De Dios CRNP [Specified Professional Personl, Cardiology] - 10/20/25 10:40 am
Dane Spencer MD [Active, Cardiac Surgery] - 10/02/25 2:30 pm
Prescriptions:
New
acetaminophen 325 mg Tablet
650 mg PO Q4HPRN PRN (Reason: mild pain,headache,temp >101F ) Qty: 0 0RF
amiodarone [Pacerone] 200 mg Tablet
200 mg PO MoWeFr 60 Days Qty: 26 0RF
guaifenesin 600 mg Tablet Extended Release 12hr
600 mg PO Q12 Qty: 0 0RF
potassium chloride [Klor-Con M20] 20 mEq Tablet,Er Particles/Crystals
20 meq PO DAILY 30 Days Qty: 30 0RF
Continued
multivitamin Tablet
1 tab PO DAILY
tamsulosin 0.4 mg capsule
0.4 mg PO DAILY
finasteride 5 mg tablet
5 mg PO DAILY
loratadine 10 mg Tablet
10 mg PO DAILY
Co Q-10 300 mg Capsule
300 mg PO DAILY
ascorbic acid (vitamin C) [Vitamin C] 500 mg Tablet
250 mg PO BID
Jardiance 10 mg Tablet
10 mg PO DAILY
calcium carbonate 500 mg calcium (1,250 mg) Tablet
500 mg PO BID
psyllium Packet
1 packet PO DAILY
lysine 1,000 mg Tablet
1,000 mg PO DAILY
magnesium oxide 250 mg magnesium Tablet
250 mg PO DAILY
cholecalciferol (vitamin D3) [Vitamin D3] 25 mcg (1,000 unit) Capsule
25 mcg PO DAILY
vmhejkhfsjc-hrystyzsp-gvj C-Mn [Glucosamine Chondroitin MaxStr] 500-400 mg Capsule
3 cap PO DAILY
furosemide [Lasix] 40 mg tablet
40 mg PO DAILY
eplerenone 25 mg tablet
25 mg PO DAILY
Eliquis 5 mg tablet
5 mg PO BID
Discontinued
acetaminophen 500 mg Tablet
1,000 mg PO BID
valsartan 40 mg Tablet
40 mg PO DAILY
metoprolol succinate 25 mg tablet extended release 24 hr
12.5 mg PO BID
Discharge Orders:
Discharge Patient (As Directed); Ordered 09/12/25
Ordered By: Mary Boyer
Discharge Date and Time
Print Language: GERMAN
[2025-09-12] MEDS: NEURONTIN PO (16:29)
--- NOTE | 2025-09-12 17:45 | PTCARENOTE ---
Went over discharge instructions with patient and patient's significant other. Answered any questions they had and clarified questions regarding certain prescriptions. Patient for discharge home.
== END 2025-09-12 18:27 | disposition home or self-care (01) | DRG 317 ==
LOC: CVICU 05:08
PROVIDERS: Anesthesiology; Nurse Practitioner; Physician Assistant Medical; ADMITTING PHYSICIAN Thoracic Surgery (Cardiothoracic Vascular Surgery); CONSULT PHYSICIAN Internal Medicine; CONSULT PHYSICIAN Internal Medicine Critical Care Medicine; FAMILY PHYSICIAN Family Medicine
PROC: 02UG08Z Supplement Mitral Valve with Zooplastic Tissue, Open Approach (ICD-10-PCS; 2025-09-07)
PROC: 02L70CK Occlusion of Left Atrial Appendage with Extraluminal Device, Open Approach (ICD-10-PCS; 2025-09-07)
PROC: 02Q50ZZ Repair Atrial Septum, Open Approach (ICD-10-PCS; 2025-09-07)
PROC: 5A1221Z Performance of Cardiac Output, Continuous (ICD-10-PCS; 2025-09-07)
PROC: B24BZZ4 Ultrasonography of Heart with Aorta, Transesophageal (ICD-10-PCS; 2025-09-07)
PROC: 02580ZZ Destruction of Conduction Mechanism, Open Approach (ICD-10-PCS; 2025-09-07)
DX: I35.1 Nonrheumatic aortic (valve) insufficiency (principal); J95.1 Acute pulmonary insufficiency following thoracic surgery; I50.33 Acute on chronic diastolic (congestive) heart failure; I48.20 Chronic atrial fibrillation, unspecified; I51.0 Cardiac septal defect, acquired; D62 Acute posthemorrhagic anemia; I48.92 Unspecified atrial flutter; J98.11 Atelectasis; E87.1 Hypo-osmolality and hyponatremia; I44.1 Atrioventricular block, second degree; I34.1 Nonrheumatic mitral (valve) prolapse; I11.0 Hypertensive heart disease with heart failure; I49.3 Ventricular premature depolarization; R31.9 Hematuria, unspecified; R50.82 Postprocedural fever; D75.838 Other thrombocytosis; Y83.8 Other surgical procedures as the cause of abnormal reaction of the patient, or of later complication, without mention of misadventure at the time of the procedure; E86.1 Hypovolemia; E87.6 Hypokalemia; I83.92 Asymptomatic varicose veins of left lower extremity; N40.0 Benign prostatic hyperplasia without lower urinary tract symptoms; M85.80 Other specified disorders of bone density and structure, unspecified site; Z79.01 Long term (current) use of anticoagulants
CPT/HCPCS: 36415; 71045; 71046; 80048; 80053; 81003; 81015; 82248; 82330; 82565; 82805; 82810; 82947; 82962; 83036; 83735; 84132; 84302; 84520; 85014; 85018; 85025; 85027; 85049; 85610; 85730; 86803; 86850; 86900; 86901; 86920; 87070; 87086; 87147; 93005; 93308; 93312; 93320; 93321; 93325; 93880; 94002; 97116; 97163; 97167; 97530; 97535; J1250; J2916; P9047

== ENCOUNTER 2025-09-20 10:54 | Emergency (ER) | payer OTHER, SELFPAY ==
[2025-09-20 11:04] VITALS: BP 143/61
[2025-09-20 11:22] VITALS: BP 154/59
[2025-09-20 11:31] VITALS: BMI 29.7
[2025-09-20 12:00] VITALS: BP 130/52
[2025-09-20 12:15] LABS: Hematocrit 41.5 % (39.0-52.0); Hemoglobin 13.0 g/dL (13.0-18.0); Mean Corp Hgb Conc. 31.3 g/dL (33.0-37.0); Mean Corpuscular Volume 91.6 fL (80.0-94.0); Nucleated Red Blood Cells % 0 % (-); Platelet Count 314 10^3/uL (130-400); Red Cell Dist. Width 13.1 % (11.5-14.5)
[2025-09-20 12:17] LABS: ALT (SGPT) 33 U/L (0-50); AST (SGOT) 28 U/L (17-59); Albumin 3.8 g/dl (3.5-5.0); Alkaline Phosphatase 78 U/L (38-126); Blood Urea Nitrogen 23 mg/dl (9-20); Calcium 9.4 mg/dl (8.4-10.2); Carbon Dioxide 28 mmol/L (22-30); Chloride 105 mmol/L (98-107); Estimated Creatinine Clearance 78 ml/min; Glucose 102 mg/dl (70-99); Potassium 4.6 mmol/L (3.5-5.1); Sodium 134 mmol/L (135-145); Total Protein 6.8 g/dl (6.3-8.2); eGFR > 60.00
--- NOTE | 2025-09-20 13:04 | ED.GENMED ---
History of Present Illness
General
Chief Complaint: Heart Rate Problem
Time Seen by Provider: 09/20/25 11:35
History of Present Illness
History of Present Illness:
69-year-old male presents to the emergency department for evaluation of frequent heart palpitations. He is 13 days status post minithoracotomy for left atrial appendage clipping, maze, mitral valve repair and iatrogenic ASD closure performed at
this hospital by Dr. Spencer. Postoperative course was complicated by atrial fibrillation and beta-blockers were held due to slow rates. At this time he denies chest pain or shortness of breath but does report fatigue. Notes increased heart
palpitations and a sensation of 'pounding' in the chest beginning this morning. He is on amiodarone and Eliquis currently
Past History
Past History
ED Past Medical History: HTN and Hypercholesterolemia
Review of Systems
Review of Systems
Allergies reviewed?: Yes
All Other Systems: ROS reviewed and negative except as documented in HPI and ROS
Phy Exam
Physical Exam
Physical Exam:
GEN: Well appearing, NAD, WDWN
HEENT: Oral mucosa moist, no scleral icterus
Cardiac: Irregular and bradycardic, no murmurs
Lung: No respiratory distress, no tachypnea, lungs clear to auscultation
Chest: Minithoracotomy incision sites clean dry and intact
MSK: No gross deformity or injuries
Skin: Good color, no pallor or jaundice, no rashes
Neuro: AO x3, moves all extremities freely
Psych: Calm, cooperative
Course
Orders/Labs/Results
Orders:
Orders
09/20/25 10:55
Electrocardiogram (*1) Urgent
Reason for Study: Chest Pain
EKG- Treatment ONCE
09/20/25 11:41
Complete Blood Count/With Diff Urgent
Comprehensive Metabolic Panel Urgent
09/20/25 11:43
CR Chest - 2 Views Urgent
Comment:
Reason For Exam: palpitations, recent MVR/MAZE/ASD closure
Abnormal Lab Results
09/20/25
11:41
WBC 12.5 H 10^3/uL
(4.8-10.8)
RBC 4.53 L 10^6/uL
(4.70-6.10)
MCHC 31.3 L g/dL
(33.0-37.0)
Abs Immat Gran (auto) 0.1 H 10^3/uL
(0-0.05)
Absolute Neuts (auto) 9.1 H 10^3/uL
(1.4-6.5)
Absolute Monos (auto) 1.0 H 10^3/uL
(0.1-0.6)
Immature Gran % 0.6 H %
(0-0.5)
Lymphocytes % 14.9 L %
(20.5-51.1)
Sodium 134 L mmol/L
(135-145)
BUN 23 H mg/dl
(9-20)
Glucose 102 H mg/dl
(70-99)
09/20/25 11:41
09/20/25 11:41
Vital Signs
Initial and Last Documented VS:
Initial Vital Signs
Temp Pulse Resp BP Pulse Ox
97.8 F 40 20 143/61 97
09/20/25 11:04 09/20/25 11:04 09/20/25 11:04 09/20/25 11:04 09/20/25 11:04
Last Documented Vital Signs
Temp Pulse Resp BP Pulse Ox
97.8 F 63 17 139/65 95
09/20/25 11:04 09/20/25 12:14 09/20/25 12:14 09/20/25 13:07 09/20/25 13:08
MDM/Problems Addressed
MDM/Problems Addressed:
Patient's palpitations are most likely a product of his PVCs. Labs are reassuring and chest x-ray does not reveal any significant acute pathology, he has no shortness of breath suggesting that the pleural effusion is symptomatic at this point. He
will follow-up as an outpatient with cardiology for elective cardioversion, no indication for admission
Comment
Comment:
EKG independently interpreted by me shows a rate controlled atrial fibrillation with frequent PVCs, no ischemic changes
Chest x-ray independently interpreted by me shows a slightly increased right basilar pleural effusion, no cardiomegaly, no infiltrates
*Pulse Oximetry
SaO2: 95
Oxygen Mode of Delivery: Room air
Patient hypoxic: no
*Critical Care Note
Total Time (30-74mins, 75-104mins- exclusive of procedures): Not Applicable
ED Attending Note
-
Portions of this chart may have been created with voice recognition software.� Occasional wrong word or��sound alike� substitutions may have occurred due to the inherent limitations of voice recognition software.
Discharge Plan
Departure
Patient Disposition: Home (Routine Discharge)
Date of Disposition: 09/20/25
Time of Disposition: 13:04
Patient with high blood pressure during this ER visit?: No
Discharge Problem:
Atrial fibrillation, Frequent PVCs
Instructions: Atrial Fibrillation (DC)
Prescriptions:
No Action
multivitamin Tablet
1 tab PO DAILY
tamsulosin 0.4 mg capsule
0.4 mg PO DAILY
finasteride 5 mg tablet
5 mg PO DAILY
loratadine 10 mg Tablet
10 mg PO DAILY
Co Q-10 300 mg Capsule
300 mg PO DAILY
ascorbic acid (vitamin C) [Vitamin C] 500 mg Tablet
250 mg PO BID
Jardiance 10 mg Tablet
10 mg PO DAILY
calcium carbonate 500 mg calcium (1,250 mg) Tablet
500 mg PO BID
psyllium Packet
1 packet PO DAILY
lysine 1,000 mg Tablet
1,000 mg PO DAILY
magnesium oxide 250 mg magnesium Tablet
250 mg PO DAILY
cholecalciferol (vitamin D3) [Vitamin D3] 25 mcg (1,000 unit) Capsule
25 mcg PO DAILY
leualovczuk-dkjcizrbw-muw C-Mn [Glucosamine Chondroitin MaxStr] 500-400 mg Capsule
3 cap PO DAILY
furosemide [Lasix] 40 mg tablet
40 mg PO DAILY
eplerenone 25 mg tablet
25 mg PO DAILY
Eliquis 5 mg tablet
5 mg PO BID
acetaminophen 325 mg Tablet
650 mg PO Q4HPRN PRN (Reason: mild pain,headache,temp >101F ) Qty: 0 0RF
amiodarone [Pacerone] 200 mg Tablet
200 mg PO MoWeFr 60 Days Qty: 26 0RF
guaifenesin 600 mg Tablet Extended Release 12hr
600 mg PO Q12 Qty: 0 0RF
potassium chloride [Klor-Con M20] 20 mEq Tablet,Er Particles/Crystals
20 meq PO DAILY 30 Days Qty: 30 0RF
Referrals:
Jeremy Kramer MD [Family Provider, Family Practice]
Aliyah Stuart MD [Active, Cardiology]
Activity Restrictions/Additional Instructions:
Follow up with the director investor relations office as discussed
Interventions
Interventions:
*Risk Screen - Suicide Last Done: 09/20/25 11:04
*General Assessment Last Done: 09/20/25 11:04
*Neglect/Abuse Screening Last Done: 09/20/25 11:04
*ED- Fall Risk Assessment Last Done: 09/20/25 11:32
*ED COVID-19 Vaccine History Last Done: 09/20/25 11:32
*ED Influenza Vaccine History Last Done: 09/20/25 11:32
*Nursing Disposition Last Done: 09/20/25 13:26
ED- Cardiac Assessment Last Done: 09/20/25 11:32
ED- Pulmonary Assessment Last Done: 09/20/25 11:32
Discharge Date and Time
Discharge Date/Time: 09/20/25 13:27
Print Language: SERBIAN
[2025-09-20 13:07] VITALS: BP 139/65
== END 2025-09-20 13:27 | disposition home or self-care (01) ==
LOC: EMR 10:54
PROVIDERS: EMERGENCY PHYSICIAN Emergency Medicine; FAMILY PHYSICIAN Family Medicine
DX: I48.91 Unspecified atrial fibrillation (principal); I49.3 Ventricular premature depolarization; I10 Essential (primary) hypertension; E78.00 Pure hypercholesterolemia, unspecified; Z79.01 Long term (current) use of anticoagulants; Z79.899 Other long term (current) drug therapy
CPT/HCPCS: 99285; 71046; 80053; 85025; 93005

== ENCOUNTER 2025-09-22 09:18 | Day surgery (SDC) | payer OTHER, SELFPAY ==
[2025-09-22] VITALS (8 sets, daily range): BP systolic 117–143; BP diastolic 67–87; BMI 32.8
--- NOTE | 2025-09-22 14:54 | PTCARENOTE ---
Received pt post pacemaker procedure. Left chest wall dressing is CDI and immobilizer is on. Pt is paced on the monitor with PVC's. VSS. Pt is still groggy from procedure but call robert is within reach and pt was told to call if he needs anything.
--- NOTE | 2025-09-22 16:34 | CM ---
Chart reviewed. Patient is independent of ADLS, lives with his spouse in a [address], 1.5 BREANN, ambulates with RW. Patient is interested in VN. Referral sent to [facility]. Plan is for the patient to return home with [facility]
--- NOTE | 2025-09-22 17:08 | ITS.CL.PACE ---
Health Insurance Specialist - Pacemaker Implant
Pacemaker Implant
Procedure Report:
Date of Procedure: September 22, 2025.
Procedure: Pacemaker Implantation. Left upper extremity venogram.
Indication: The pacemaker is for the treatment of nonreversible symptomatic bradycardia due to second degree atrioventricular block.
Performing physician: Joseph Dos Santos MD, [facility].
Implants:
Pulse Generator: [employer]; Model# L331; Serial# [id number].
RA Lead: [employer]; Model# 7841; Serial# [id number].
RV Lead: [employer]; Model# 7842; Serial# [id number].
Technique: A time out was performed. A 10 mL upper extremity venogram demonstrated patent left axillary, cephalic, and subclavian veins. The procedure site was identified. The patient was anesthetized by the anesthesia service. Preoperative
cefazolin was administered. The patient was prepped and draped in the usual fashion. Local anesthetic was applied to the left prepectoral subcutaneous tissue. A 3 inch incision was made along the left deltopectoral groove. Dissection was carried to
the fascia. The left cephalic vein was easily isolated and proximal and distal control with 2-0 Vicryl suture. Using a micropuncture needle to access the cephalic vein under direct visualization a wire was advanced into the central circulation. A 7
Fr introducer was placed to allow two 0.35 J wires to be advanced. The leads were introduced with hemostatic peel away introducer sheaths. Despite using 2 different conduction system delivery sheaths and adequate location for left bundle pacing was
not found. The ventricular lead was placed at the right ventricular apical septum. The ventricular lead was secured to the pectoralis muscle and fascia with two 0-silk sutures. The atrial lead was placed in the right atrial appendage. 10 volt pacing
from each lead did not capture the diaphragm. The atrial leads was secured to the pectoralis muscle and fascia. A subcutaneous pocket was created with Bovie cautery. Hemostasis was excellent. The leads were appropriately attached to the device. The
pocket was irrigated with antibiotic solution. The device and leads were placed in the pocket. The incision was closed in three layers with absorbable suture. Steri-strips and a silver impregnated dressing were placed. Estimated blood loss was less
than 50 ml almost all from cephalic vein back bleeding. The procedure was performed on uninterrupted Eliquis therapy. There were no complications. Fluoroscopy time 10.9 minutes and DAP 38.59 GyCM2. The device was then interrogated after skin
closure.
Lead Analysis:
RA lead: P: 4.6 mV; Threshold: 0.8 V @ 0.4 ms; Impedance: 508 ohms.
RV lead: R: 7.1 mV; Threshold: 0.4 V @ 0.4 ms; Impedance: 687 ohms.
Final Programming: DDDR 60-130 bpm.
Conclusion: Uncomplicated [employer] pacemaker implant. The pacing system is MRI conditional.
Recommendation: Routine post pacemaker care.
cc: Jeremy Kramer MD.
[2025-09-22] MEDS: ELIQUIS 5 MG PO (19:54)
[2025-09-22] MEDS: ANCEF 5 IV (19:54)
[2025-09-22] MEDS: TYLENOL 650 MG PO ×2 (19:54→23:58)
--- NOTE | 2025-09-23 00:05 | PTCARENOTE ---
Addendum entered by René Hernandes RN 09/23/25 00:07:
patient requesting artificial tears. he uses twice a day at home. Fermín AGUAYO placed order, see mar.
Original Note:
assumed care of patient at the change of shift. family visiting. AAOx3. patient complaining of pain at MVR incision sites on R chest- Tylenol given, see mar. L chest dressing intact. reviewed activity restrictions with patient and verbalized
understanding. Vpacing on tele with PVCs- 70s-90s. bp stable. assisted patient to BR, steady on his feet. educated patient to inform RN with any changes overnight. comfort measures provided. call robert within reach.
[2025-09-23] MEDS: REFRESH EYE DROPS (PF) 1 DROPS OPHTH (00:28)
[2025-09-23 04:37] VITALS: BP 139/101
[2025-09-23] MEDS: TYLENOL 650 MG PO ×2 (04:42→12:53)
[2025-09-23] MEDS: ANCEF 5 IV (04:43)
[2025-09-23 04:46] VITALS: BP 119/86
[2025-09-23 05:01] VITALS: BMI 32.9
[2025-09-23 05:03] LABS: Hematocrit 39.3 % (39.0-52.0); Hemoglobin 12.5 g/dL (13.0-18.0); Mean Corp Hgb Conc. 31.8 g/dL (33.0-37.0); Mean Corpuscular Volume 89.3 fL (80.0-94.0); Platelet Count 272 10^3/uL (130-400); Red Cell Dist. Width 13.0 % (11.5-14.5)
[2025-09-23 05:19] LABS: Blood Urea Nitrogen 19 mg/dl (9-20); Calcium 8.9 mg/dl (8.4-10.2); Carbon Dioxide 27 mmol/L (22-30); Chloride 106 mmol/L (98-107); Estimated Creatinine Clearance 93 ml/min; Glucose 97 mg/dl (70-99); Potassium 4.5 mmol/L (3.5-5.1); Sodium 135 mmol/L (135-145); eGFR > 60.00
[2025-09-23 07:28] VITALS: BP 150/81
[2025-09-23] MEDS: FLOMAX 0.4 MG PO (08:54)
[2025-09-23] MEDS: FARXIGA 10 MG PO (08:54)
[2025-09-23] MEDS: PACERONE 200 MG PO (08:54)
[2025-09-23] MEDS: ELIQUIS 5 MG PO (08:54)
[2025-09-23] MEDS: LASIX 40 MG PO (08:56)
[2025-09-23] MEDS: NEURONTIN 100 MG PO (08:56)
[2025-09-23] MEDS: INSPRA 25 MG PO (08:56)
[2025-09-23] MEDS: KCL 20 MEQ PO (08:56)
[2025-09-23] MEDS: PROSCAR 5 MG PO (08:57)
[2025-09-23] MEDS: CLARITIN 10 MG PO (08:57)
--- NOTE | 2025-09-23 09:30 | W.PN.CD ---
Addendum entered and electronically signed by Aliyah Stuart MD 09/23/25 10:18:
I saw and evaluated the patient, and I provided the substantive portion of the medical decision making.
I reviewed and agree with the note by ZACH Alvarez and it accurately reflects our care.
I personally performed the medical decision making of the this encounter and my assessment and plan is below:
He is feeling well without complaint. On exam, pacemaker site is well-healed, no fluid collection or hematoma. Aquacel dressing clean dry and intact. His lungs are clear to auscultation bilaterally he has a regular rate and rhythm
Hemoglobin is stable.
PAF: Status post PERICO cardioversion, continue Eliquis without interruption, increasing amiodarone as pacemaker in place
Symptomatic bradycardia with second-degree heart block status post dual-chamber pacemaker, site looks well-healed. Restrictions discussed.
Okay to discharge home with follow-up.
Greater than 30 minutes spent in his discharge.
Original Note:
Today's Communication / Plan
-
d/c home
Impression / Plan
-
PAF:
-s/p PERICO cardioversion with second degee AVB, now s/p PPM
- chronic anticoagulation with eliquis
-amiodarone increased to 200mg daily now that pt has PPM.
Symptomatic bradycardia with second degree heart block:
- s/p DC PPM
-L pectoral site stable without hematoma. pressure dressing removed
-reviewed L arm restrictions
-f/u incision check in the office
MVP with severe mitral regurgitation:
-s/p right mini thoracotomy with radical mitral valve repair, cryoablation, left atrial maze and left atrial appendage exclusion, iatrogenic atrial septal defect closure from previous ablations, done primarily, Dr. Spencer 09/07/25
Subjective:
Pt feels well this am. Mild discomfort at L pectoral site and prior thoracotomy site. No CP, palps, SOB
Physical Exam
Vital Signs/Labs
Vital Signs
Temp Pulse Resp BP Pulse Ox
98.1 F 89 18 150/81 97
09/23/25 07:26 09/23/25 08:56 09/23/25 07:26 09/23/25 08:56 09/23/25 07:26
09/22/25 09/23/25 09/24/25
06:59 06:59 06:59
Actual Weight 95.3 kg
09/23/25 04:38
09/23/25 04:38
Physical Exam
Cardiovascular: Rhythm & rate is regular and Pedal edema is absent
Respiratory: Respiratory effort normal and Lungs clear to auscul.
GI: Soft, Non tender and Normal bowel sounds
Neuro/Psych: AO x 3
Other: Cardiac Device Site (L pectoral incision with dressing intact. No hematoma)
Data Reviewed
-
Date of Service: September 23, 2025
EKG: Tracing Personally Visualized and interpreted (EKG 09/23/25 ASVP 86 bpm ) and Other (Tele: ASVP 90 bpm, PVC's )
X-Ray/CT/US/MRI/NUC/PET: Report Reviewed by me (CXR 09/22/25 Left-sided dual-lead cardiac conduction device has been placed. There is no pneumothorax. The leads are intact without discontinuity. Lead tip locations in the expected region of the
right atrium and right ventricle.)
Labs: Labs Reviewed by me
--- NOTE | 2025-09-23 09:39 | W.DS.TRANS ---
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
-
Discharge Instructions:
Sleep Apnea Risk Intermediate
Discharge Diagnosis/Procedures PERICO/Cardioversion
Heart Block, s/p Pacemaker implant
Diet Low Cholesterol
Driving Restrictions No driving for 1 week
Instructions:
Stand-Alone Forms: DC Inst - Implanted Device
Changes to Home Medications: Yes
Discharge Medications:
DC Medications w/original date entered in [facility]
coenzyme Q10 300 mg capsule (Co Q-10) 300 mg PO DAILY Supplement 10/30/23
finasteride 5 mg tablet 5 mg PO DAILY Urinary Issue 10/30/23
loratadine 10 mg tablet 10 mg PO DAILY Allergies 10/30/23
multivitamin 1 tab PO DAILY Supplement 10/30/23
tamsulosin 0.4 mg capsule 0.4 mg PO DAILY Urinary Issue 10/30/23
ascorbic acid (vitamin C) 500 mg tablet (Vitamin C) 250 mg PO BID Supplement 12/22/23
empagliflozin 10 mg tablet (Jardiance) 10 mg PO DAILY Heart Disease/Condition 12/22/23
calcium carbonate 500 mg PO BID Supplement 06/05/25
psyllium 1 packet PO DAILY Constipation 06/05/25
cholecalciferol (vitamin D3) 25 mcg (1,000 unit) capsule (Vitamin D3) 25 mcg PO DAILY Supplement 08/24/25
[id number] C-Mn 500 mg-400 mg capsule (Glucosamine Chondroitin Maximum Strength) 3 cap PO DAILY Supplement 08/24/25
lysine 1,000 mg tablet 1,000 mg PO DAILY Supplement 08/24/25
magnesium oxide 250 mg PO DAILY Electrolyte Repletion 08/24/25
apixaban 5 mg tablet (Eliquis) 5 mg PO BID Blood Clot Prevention/Tx 09/07/25
eplerenone 25 mg tablet 25 mg PO DAILY Heart Disease/Condition 09/07/25
furosemide 40 mg tablet (Lasix) 40 mg PO DAILY Fluid Retention/Swelling 09/07/25
acetaminophen 325 mg tablet 650 mg (2 x 325 mg) PO Q4HPRN PRN mild pain,headache,temp >101F #0 tabs 09/09/25
guaifenesin 600 mg tablet, extended release 12 hr 600 mg PO Q12 Cough #0 tabs 09/12/25
potassium chloride 20 mEq tablet,extended release(part/cryst) (Klor-Con M) 20 meq PO DAILY Supplement 30 days #30 tabs 09/12/25
amiodarone 200 mg tablet (Pacerone) 200 mg PO DAILY #30 tabs 09/22/25
gabapentin 100 mg tablet 100 mg PO DAILY 09/22/25
Home Medication Changes
amiodarone increased to 200mg daily
Pending Results: No
[2025-09-23 11:08] VITALS: BP 152/89
--- NOTE | 2025-09-23 14:43 | PTCARENOTE ---
d/c instructions read to pt and pt verbalized understanding. iv and tele removed. pt instructed on restrictions with L arm. pt left w/ belongings from room, ppm box and instructions. PPM is CDI. pt left via wheelchair with staff member.
[2025-09-23 18:41] LABS: Hepatitis C Antibody Negative (Negative)
== END 2025-09-23 14:45 | disposition home or self-care (01) ==
LOC: CATH 09:18
PROVIDERS: Nurse Practitioner; ATTENDING PHYSICIAN Internal Medicine; FAMILY PHYSICIAN Family Medicine; OTHER PHYSICIAN Internal Medicine Cardiovascular Disease
DX: I44.1 Atrioventricular block, second degree (principal); I49.3 Ventricular premature depolarization; I48.0 Paroxysmal atrial fibrillation; I44.2 Atrioventricular block, complete; E78.5 Hyperlipidemia, unspecified; I08.2 Rheumatic disorders of both aortic and tricuspid valves; I11.0 Hypertensive heart disease with heart failure; I50.32 Chronic diastolic (congestive) heart failure; N40.0 Benign prostatic hyperplasia without lower urinary tract symptoms; Q21.12 Patent foramen ovale; Z79.01 Long term (current) use of anticoagulants; Z79.899 Other long term (current) drug therapy; Z87.74 Personal history of (corrected) congenital malformations of heart and circulatory system; Z88.8 Allergy status to other drugs, medicaments and biological substances
CPT/HCPCS: 33208; 93312; 93320; 93325; 71045; 80048; 85027; 86803; 92960; 93005; C1769; C1785; C1887; C1898; Q9967

== ENCOUNTER 2025-11-01 11:49 | Outpatient (RCR) | payer OTHER, SELFPAY | END 2025-11-01 23:59 | disposition home or self-care (01) | LOC: CRHB 11:49 | PROVIDERS: ATTENDING PHYSICIAN Internal Medicine Cardiovascular Disease; FAMILY PHYSICIAN Family Medicine | DX: Z95.2 Presence of prosthetic heart valve (principal); I50.32 Chronic diastolic (congestive) heart failure (principal) | CPT/HCPCS: G0422; G0423 ==